=== PATIENT | female | born 1950 | race Caucasian/White ===

== ENCOUNTER 2016-09-09 10:06 | Outpatient (CLI) | payer MEDICARE, BC | END 2016-09-09 10:07 | disposition home or self-care (01) | DX: M17.0 Bilateral primary osteoarthritis of knee (principal) ==

== ENCOUNTER 2016-09-17 10:09 | Outpatient (CLI) | payer MEDICARE, BC | END 2016-09-17 10:10 | disposition home or self-care (01) | DX: Z12.31 Encounter for screening mammogram for malignant neoplasm of breast (principal) ==

== ENCOUNTER 2016-11-25 14:57 | Outpatient (CLI) | payer MEDICARE, BC ==
[2016-11-25 17:44] LABS: BILIRUBIN,URINE NEGATIVE (NEGATIVE); PH,URINE 5.5 PH (5.0-7.5)
[2016-11-25 17:50] LABS: UA w/ MICROSCOPIC CHARGE YES; UR CULTURE IF IND INDICATED; WBC,URINE >25 /HPF (0-5)
== END 2016-11-25 14:58 | disposition home or self-care (01) ==
LOC: LAB.F 14:57
PROVIDERS: ATTEND Internal Medicine
DX: N30.00 Acute cystitis without hematuria (principal)
CPT/HCPCS: 81001; 81003; 87077; 87086

== ENCOUNTER 2017-09-12 10:11 | Outpatient (CLI) | payer MEDICARE, BC ==
[2017-09-12 18:04] LABS: ALBUMIN 4.1 g/dL (3.2-5.5); ALKALINE PHOSPHATASE 73 IU/L (42-121); ALT ALANINE AMINOTRANSFERASE 29 IU/L (10-60); AST ASPARTATE AMINOTRANSFERASE 23 IU/L (10-42); BILIRUBIN,DIRECT 0.1 mg/dL (0.1-0.5); BILIRUBIN,TOTAL 0.4 mg/dL (0.2-1.0); CHOL/HDL RATIO 4.8 (<4.4); CHOLESTEROL 179 mg/dL; CK- CREATINE KINASE 41 IU/L (22-269); HDL CHOLESTEROL 37 mg/dL; LDL CHOLESTEROL,CALCULATED 102 mg/dL; LDL/HDL RATIO 2.8 (<4.4); TOTAL PROTEIN 7.1 g/dL (6.7-8.2); VLDL CHOLESTEROL 40 mg/dL
[2017-09-12 18:13] LABS: THYROID STIMULATING HORMONE 2.84 uIU/mL (0.34-5.60)
[2017-09-12 18:16] LABS: CREATININE,URINE 188.8 mg/dL; MICROALBUM/CREATININE RATIO,UR 3.2 ug/mg (<30.0); MICROALBUMIN,URINE 0.6 mg/dL (0-300.0)
[2017-09-12 18:17] LABS: FERRITIN 57.1 ng/mL (11.0-306.8)
== END 2017-09-12 10:12 | disposition home or self-care (01) ==
LOC: LAB.F 10:11
PROVIDERS: ATTEND Internal Medicine
DX: Z79.899 Other long term (current) drug therapy (principal); E11.9 Type 2 diabetes mellitus without complications; I10 Essential (primary) hypertension; J44.9 Chronic obstructive pulmonary disease, unspecified; G25.81 Restless legs syndrome; E78.5 Hyperlipidemia, unspecified; Z13.6 Encounter for screening for cardiovascular disorders; F41.9 Anxiety disorder, unspecified; M19.90 Unspecified osteoarthritis, unspecified site
CPT/HCPCS: 36415; 80061; 80076; 82043; 82550; 82570; 82607; 82728; 83721; 84443

== ENCOUNTER 2019-02-13 15:28 | Emergency (ER) | payer MEDICARE, BC ==
[2019-02-13 16:21] LABS: BASOPHILS % (AUTO) 0.4 %; EOSINOPHILS # (AUTO) 0.1 10^3/uL (0.0-0.7); HGB - HEMOGLOBIN 14.1 g/dL (12.0-16.0); LYMPHOCYTES # (AUTO) 0.5 10^3/uL (1.5-3.5); LYMPHOCYTES % (AUTO) 5.9 %; MEAN CORPUSCULAR HEMOGLOBIN 29.8 pg (27.0-31.0); MEAN CORPUSCULAR HGB CONC 32.5 g/dL (32.0-36.0); MEAN CORPUSCULAR VOLUME 91.8 fL (81.0-99.0); MEAN PLATELET VOLUME 9.5 fL (7.9-10.8); MONOCYTES # (AUTO) 0.2 10^3/uL (0.0-1.0); MONOCYTES % (AUTO) 2.9 %; NEUTROPHILS # (AUTO) 7.5 10^3/uL (1.5-6.6); NEUTROPHILS % (AUTO) 89.2 %; PLT - PLATELET COUNT 182 10^3/uL (130-450); RED BLOOD COUNT 4.73 10^6/uL (4.20-5.40); RED CELL DISTRIBUTION WIDTH 13.7 % (12.0-15.0); WHITE BLOOD COUNT 8.4 x10^3/uL (4.8-10.8)
[2019-02-13 16:22] LABS: BILIRUBIN,URINE NEGATIVE (NEGATIVE); GLUCOSE, URINE (UA) NEGATIVE (NEGATIVE); KETONES,URINE (UA) NEGATIVE (NEGATIVE); LEUKOCYTE ESTERASE, URINE SMALL (NEGATIVE); NITRITE,URINE NEGATIVE (NEGATIVE); OCCULT BLOOD,URINE NEGATIVE (NEGATIVE); PROTEIN,URINE NEGATIVE (NEGATIVE); UROBILINOGEN,URINE 0.2 (NORMAL) E.U./dL (NORMAL)
[2019-02-13 16:25] LABS: CLARITY,URINE HAZY (CLEAR); HCG UR QUAL NEGATIVE
[2019-02-13 16:34] LABS: RBC,URINE 0-5 /HPF (0-5); SQUAMOUS EPITHELIAL CELL,UR FEW Squamous (<= Few)
[2019-02-13 16:35] LABS: BACTERIA,URINE Moderate /HPF (None Seen)
[2019-02-13 16:39] LABS: ALBUMIN 4.4 g/dL (3.2-5.5); ALBUMIN/GLOBULIN RATIO 1.3 (1.0-2.2); BILIRUBIN,TOTAL 0.7 mg/dL (0.2-1.0); CALCIUM 9.5 mg/dL (8.5-10.3); CREATININE 0.9 mg/dL (0.4-1.0); TOTAL PROTEIN 7.8 g/dL (6.7-8.2)
[2019-02-13] MEDS ORDERED: ONDANSETRON 4 MG/2 ML VIAL IVP STA ×2 (17:39→20:30)
[2019-02-13] MEDS ORDERED: HYDROmorphone 1 MG/ML CARPUJECT IVP STA (17:39)
--- NOTE | 2019-02-13 17:42 | ED Physician Documentation ---
PD HPI ABD PAIN - Stated complaint Stated Complaint: VOMITING/PX LEFT SIDE - Chief complaint Chief Complaint: Abd Pain - History obtained from History obtained from: Patient - History of Present Illness Timing - onset: Other (Gradual onset constant left mid abdominal pain today that is severe associate with nausea and vomiting. Normal BM this morning. No urinary symptoms. She has a history of diverticulitis but this is different.) Review of Systems Ten Systems: 10 systems reviewed and negative Constitutional: reports: Chills. denies: Fever GI: reports: Abdominal Pain, Nausea, Vomiting. 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 - Present Medications Home Medications: Ambulatory Orders Medication Instructions Recorded Confirmed Enalaprilat [Vasotec] 4 tab ORAL BID 02/01/14 02/08/14 RX: Glipizide [Glipizide Xl] 1.5 tab ORAL DAILY 02/01/14 02/08/14 RX: Simvastatin [Zocor] 1 tab ORAL DAILY 02/01/14 02/08/14 RX: metFORMIN [Glucophage] 1 tab ORAL BID 02/01/14 02/08/14 Sertraline HCl [Zoloft] 1 tab ORAL DAILY 02/01/14 02/08/14 Nitrofurantoin Monohyd/M-Cryst 100 mg PO BID #14 capsule 02/13/19 [Macrobid 100 mg Capsule] Oxycodone HCl/Acetaminophen 1 - 2 each PO Q6H PRN #14 tablet 02/13/19 [Percocet 5-325 mg Tablet] Tamsulosin [Flomax] 0.4 mg PO DAILY #14 capsule 02/13/19 - Allergies Allergies/Adverse Reactions: Allergies Allergy/AdvReac Type Severity Reaction Status Date / Time Penicillins Allergy Hives Verified 02/01/14 12:29 bees Allergy Edema Uncoded 02/08/14 14:55 transpore tape Allergy Itching Uncoded 02/08/14 14:55 - Social History Does the pt smoke?: No Smoking Status: Never smoker Does the pt drink ETOH?: Yes Does the pt have substance abuse?: No - Immunizations Immunizations are current?: Yes PD ED PE NORMAL - Vitals Vital signs reviewed: Yes - General General: Alert and oriented X 3, No acute distress - HEENT HEENT: PERRL, EOMI - Neck Neck: Supple, no meningeal sign, No bony TTP - Cardiac Cardiac: Other (slightly tachycardic) - Respiratory Respiratory: No respiratory distress, Clear bilaterally - Abdomen Abdomen: Normal bowel sounds, Soft, Non tender - Back Back: No CVA TTP, No spinal TTP - Derm Derm: Normal color, Warm and dry - Extremities Extremities: No edema, No calf tenderness / cord - Neuro Neuro: Alert and oriented X 3, Normal speech Results - Vitals Vitals: Vital Signs - 24 hr 02/13/19 02/13/19 02/13/19 15:49 17:55 19:00 Temperature 37.2 C Heart Rate 120 H 133 H 133 H Respiratory 18 20 21 Rate Blood Pressure 173/93 H 162/75 H 147/77 H O2 Saturation 96 92 93 02/13/19 02/13/19 02/13/19 19:50 20:05 21:02 Temperature 38.3 C H 38.6 C H Heart Rate 131 H 138 H 118 H Respiratory 19 18 20 Rate Blood Pressure 157/86 H 170/100 H 153/75 H O2 Saturation 93 97 97 Oxygen O2 Source Nasal cannula - Labs Labs: Laboratory Tests 02/13/19 02/13/19 02/13/19 16:00 16:15 16:15 WBC 8.4 RBC 4.73 Hgb 14.1 Hct 43.4 MCV 91.8 MCH 29.8 MCHC 32.5 RDW 13.7 Plt Count 182 MPV 9.5 Neut # (Auto) 7.5 H Lymph # (Auto) 0.5 L [place] # (Auto) 0.2 Eos # (Auto) 0.1 Baso # (Auto) 0.0 Absolute Nucleated RBC 0.00 Nucleated RBC % 0.0 Sodium 140 Potassium 4.2 Chloride 99 L Carbon Dioxide 28 Anion Gap 13.0 BUN 26 H Creatinine 0.9 Estimated GFR (MDRD) 62 L Glucose 137 H Calcium 9.5 Total Bilirubin 0.7 AST 26 ALT 24 Alkaline Phosphatase 88 Total Protein 7.8 Albumin 4.4 Globulin 3.4 Albumin/Globulin Ratio 1.3 Lipase 23 Urine Color YELLOW Urine Clarity HAZY Urine pH 5.0 Ur Specific [place] 1.020 Urine Protein NEGATIVE Urine Glucose (UA) NEGATIVE Urine Ketones NEGATIVE Urine Occult Blood NEGATIVE Urine Nitrite NEGATIVE Urine Bilirubin NEGATIVE Urine Urobilinogen 0.2 (NORMAL) Ur Leukocyte Esterase SMALL H Urine RBC 0-5 Urine WBC 6-10 H Ur Squamous Epith Cells FEW Squamous Urine Bacteria Moderate H Ur Microscopic Review INDICATED Urine Culture Comments INDICATED Urine HCG, Qual NEGATIVE - Rads (name of study) CT KUB Radiology: EMP read contemporaneously (Obstructing 3 mm stone in the proximal left ureter causing mild left hydroureteronephrosis.) PD MEDICAL DECISION MAKING - ED course ED course: 68-year-old woman presents with left-sided abdominal pain, found to have small kidney stone. Some evidence of infection on urinalysis but pretty mild. Given that the case was discussed by phone with Dr. Newton, on-call urology at [facility] who recommended Macrobid and Flomax and follow-up as needed. Pain was easy to control with a single dose of dilaudid. However prior to discharge she had a fever of 38 3 and she became a little more tachycardic as such the urologist was re-paged to discuss. Spoke with Dr Newton again and she recommended IV rocephin and transfer to hospitalist service at [facility] for intervention She was accepted there by Dr. Mccloud to the hospitalist service, cobras were completed. She is stable for transport to a higher level of care for urologic consultation. Departure - Departure Disposition: 02 Transfer Acute Care Hosp Clinical Impression: Renal colic on left side, Pyelonephritis Condition: Serious Record reviewed to determine appropriate education?: Yes Instructions: ED Stone Renal W Colic Follow-Up: Sylvie Pritchett MD [Physician No Access] - Within 1 week Prescriptions: Nitrofurantoin Monohyd/M-Cryst [Macrobid 100 mg Capsule] 100 mg PO BID #14 capsule Oxycodone HCl/Acetaminophen [Percocet 5-325 mg Tablet] 1 - 2 each PO Q6H PRN #14 tablet PRN Reason: pain Tamsulosin [Flomax] 0.4 mg PO DAILY #14 capsule Comments: Return for new worsening symptoms especially fever. Or if pain is uncontrolled. Follow-up with urologist, call tomorrow for an appointment. We will culture your urine, if your urine culture is positive you will need alterations in treatment. Discharge Date/Time: 02/13/19 21:35
[2019-02-13] MEDS ORDERED: IOVERSOL 320 100 ML VIAL IVP ONE ×2 (18:02→18:20)
[2019-02-13] MEDS ORDERED: SODIUM CHLORIDE 0.9% 1,000 ML IV ONE ×2 (19:02→19:57)
--- NOTE | 2019-02-13 19:02 | CT Report ---
Reason: IV only,L mid abd pain Procedure Date: 02/13/2019 Accession Number: [id number] / [id number] Procedure: CT - Abdomen/Pelvis W CPT Code: FULL RESULT: EXAM: CT ABDOMEN AND PELVIS EXAM DATE: 02/13/2019 06:20 PM. CLINICAL HISTORY: L mid abd pain. COMPARISONS: None. TECHNIQUE: Routine helical CT imaging was performed through the abdomen and pelvis. IV contrast: OPTI 320 90ML. Enteric contrast: No. Reconstructions: Coronal and sagittal. In accordance with CT protocol optimization, one or more of the following dose reduction techniques were utilized for this exam: automated exposure control, adjustment of mA and/or KV based on patient size, or use of iterative reconstructive technique. FINDINGS: Lung Bases: Mild bibasilar atelectasis and/or scarring, left greater than right. Normal heart size. No pericardial effusion. Mitral annular calcification. Liver: 32 mm cyst in hepatic segment 6. Additional subcentimeter hypoattenuating focus in hepatic segment 5, too small to definitively characterize, statistically a cyst. Gallbladder/Bile Ducts: Prior cholecystectomy. No biliary ductal dilatation. Spleen: Normal. Pancreas: Normal. Adrenal Glands: Normal. Kidneys: Trace right perinephric fat stranding, nonspecific. There is an obstructing 3 mm stone in the proximal left ureter causing mild left hydroureteronephrosis. There is marked surrounding perinephric fat stranding and small amount of perinephric free fluid. Peritoneal Cavity/Bowel: Small and large bowel normal in caliber without evidence of inflammation or obstruction. Moderate to severe colonic diverticulosis. No pneumoperitoneum. No loculated fluid collections. Pelvic Organs: Normal urinary bladder. Hysterectomy. Pelvic phleboliths. Vasculature: Mild aortic atherosclerosis without aneurysm. Bones: Mild levocurvature of the lumbar spine. Severe degenerative disk disease and bilateral facet osteoarthritis L4-L5, L5-S1. Right osteitis condensans ilii. Other: Anterior abdominal wall diastases with herniation of liver, mesenteric fat, and colon below the sternum. Minuscule fat-containing umbilical hernia. IMPRESSION: Obstructing 3 mm stone in the proximal left ureter causing mild left hydroureteronephrosis. RADIA
[2019-02-13] MEDS ORDERED: oxyCODONE/ACET 5/325 Prepack 4 PO STA (19:19)
[2019-02-13] MEDS ORDERED: TAMSULOSIN 0.4 MG CAPSULE PO STA (19:19)
[2019-02-13] MEDS ORDERED: NITROFURANTOIN MACRO 100 MG CAPSULE PO STA (19:19)
[2019-02-13] MEDS ORDERED: KETOROLAC 30 MG/ML VIAL IVP STA (19:53)
[2019-02-13] MEDS ORDERED: cefTRIAXone 1 GM in SODIUM CHLORIDE 0.9% MINIBAG 100 ML IV STA (20:09)
[2019-02-13 21:03] VITALS: BP 153/75
== END 2019-02-13 21:35 | disposition short-term general hospital (02) ==
LOC: ED 15:28
DX: N13.6 Pyonephrosis (principal); I10 Essential (primary) hypertension; E11.9 Type 2 diabetes mellitus without complications; Z79.84 Long term (current) use of oral hypoglycemic drugs; Z87.19 Personal history of other diseases of the digestive system
CPT/HCPCS: 36415; 74177; 80053; 81001; 81025; 83690; 85025; 87077; 87086; 87181; 96361; 96365; 96375; 99285; A9270; J1170; Q9967; 81003

== ENCOUNTER 2019-02-13 21:38 | Outpatient (CLI) | payer MEDICARE, BC | END 2019-02-13 21:39 | disposition short-term general hospital (02) | LOC: EMS 21:38 | PROVIDERS: ATTEND Surgery | DX: N23 Unspecified renal colic (principal) | CPT/HCPCS: A0425; A0426 ==

== ENCOUNTER 2019-04-21 08:00 | Outpatient (CLI) | payer MEDICARE, BC | END 2019-04-21 23:59 | disposition home or self-care (01) | LOC: LAB.R 08:00 | PROVIDERS: ATTEND Internal Medicine | DX: R19.7 Diarrhea, unspecified (principal) | CPT/HCPCS: 81599; 83630; 87045; 87046; 87177; 87209; 87329; 87493 ==

== ENCOUNTER 2020-04-22 12:25 | Inpatient (IN) | payer MEDICARE, BC ==
[2020-04-22] MEDS ORDERED: levoFLOXacin 750 MG/150 ML 750 MG/150 ML BAG IV STA (13:07)
--- NOTE | 2020-04-22 13:09 | ED Physician Documentation ---
PD HPI DYSPNEA - Stated complaint Stated Complaint: SOA - Chief complaint Chief Complaint: Resp - History obtained from History obtained from: Patient - Additional information Additional information: 69-year-old history will of mild intermittent asthma presents with a weeks worth of cough productive of clear sputum, progressive exertional dyspnea, fatigue. No associated fevers or chills. No body aches. No sick contacts. Went to an urgent care where she was found to be profoundly hypoxemic and referred here for further evaluation and treatment. Has a history of penicillin with hives as the symptom of the allergy. Review of Systems Ten Systems: 10 systems reviewed and negative Constitutional: reports: Fatigue. 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 - Present Medications Home Medications: Ambulatory Orders Medication Instructions Recorded Confirmed Amlodipine Besylate [Norvasc] 10 mg PO DAILY 04/22/20 04/22/20 Enalapril Maleate [Vasotec] 20 mg PO DAILY 04/22/20 04/22/20 Metformin HCl [Glucophage] 1,000 mg PO BID 04/22/20 04/22/20 Sertraline HCl 50 mg PO DAILY 04/22/20 04/22/20 Simvastatin [Zocor] 20 mg PO QPM 04/22/20 04/22/20 carvediloL [Coreg] 12.5 mg PO BID 04/22/20 04/22/20 glipiZIDE [Glucotrol] 5 mg PO BID 04/22/20 04/22/20 hydroCHLOROthiazide 25 mg PO DAILY 04/22/20 04/22/20 [Hydrochlorothiazide] - Allergies Allergies/Adverse Reactions: Allergies Allergy/AdvReac Type Severity Reaction Status Date / Time Penicillins Allergy Hives Verified 02/01/14 12:29 bees Allergy Edema Uncoded 02/08/14 14:55 transpore tape Allergy Itching Uncoded 02/08/14 14:55 - Social History Does the pt smoke?: No Smoking Status: Never smoker Does the pt drink ETOH?: Yes Does the pt have substance abuse?: No - Immunizations Immunizations are current?: Yes - POLST Patient has POLST: No PD ED PE NORMAL - Vitals Vital signs reviewed: Yes - General General: Alert and oriented X 3, No acute distress - HEENT HEENT: PERRL, EOMI - Neck Neck: Supple, no meningeal sign, No bony TTP - Cardiac Cardiac: RRR, No murmur - Respiratory Respiratory: No respiratory distress, Other (Severely diminished at the right base consistent with a lobar pneumonia, slightly diminished throughout) - Abdomen Abdomen: Soft, Non tender - Back Back: No CVA TTP, No spinal TTP - Derm Derm: Normal color, Warm and dry - Extremities Extremities: No edema, No calf tenderness / cord - Neuro Neuro: Alert and oriented X 3, Normal speech Results - Vitals Vitals: Vital Signs - 24 hr 04/22/20 04/22/20 04/22/20 12:33 12:42 12:43 Temperature 36.4 C L Heart Rate 60 Respiratory 30 H Rate Blood Pressure 164/83 H O2 Saturation 61 L 97 96 04/22/20 04/22/20 13:00 13:30 Temperature Heart Rate 76 73 Respiratory 19 19 Rate Blood Pressure 152/76 H 149/74 H O2 Saturation 96 97 Oxygen O2 Source Nasal cannula Oxygen Flow Rate 4 - EKG (time done) 126 Rate: Rate (enter#) (67) Rhythm: NSR [place]: Normal Intervals: Normal CO QRS: Normal Ischemia: Non specific changes Computer interpretation: Agree with computer - Labs Labs: Laboratory Tests 04/22/20 04/22/20 04/22/20 13:16 13:16 13:16 WBC 6.5 RBC 4.93 Hgb 13.6 Hct 46.6 MCV 94.5 MCH 27.6 MCHC 29.2 L RDW 14.3 Plt Count 186 MPV 9.9 Neut # (Auto) 5.2 Lymph # (Auto) 0.7 L [place] # (Auto) 0.5 Eos # (Auto) 0.1 Baso # (Auto) 0.0 Absolute Nucleated RBC 0.02 Nucleated RBC % 0.3 Sodium 140 Potassium 4.2 Chloride 91 L Carbon Dioxide 36 H Anion Gap 13.0 BUN 27 H Creatinine 0.8 Estimated GFR (MDRD) 71 L Glucose 130 H Lactic Acid 0.9 Calcium 9.5 Troponin I High Sens B-Natriuretic Peptide Nasal Adenovirus (PCR) Nasal B. parapertussis DNA (PCR) Nasal Coronavir 229E PCR Nasal Coronavir HKU1 PCR Nasal Coronavir NL63 PCR Nasal Coronavir OC43 PCR Nasal Enterovir/Rhinovir PCR Nasal Influenza B PCR Nasal Influenza A PCR Nasal Parainfluen 1 PCR Nasal Parainfluen 2 PCR Nasal Parainfluen 3 PCR Nasal Parainfluen 4 PCR Nasal RSV (PCR) Nasal B.pertussis DNA PCR Nasal C.pneumoniae (PCR) Yash Human Metapneumo PCR Nasal M.pneumoniae (PCR) Nasal SARS-CoV-2 (PCR) 04/22/20 04/22/20 04/22/20 13:28 13:30 13:30 WBC RBC Hgb Hct MCV MCH MCHC RDW Plt Count MPV Neut # (Auto) Lymph # (Auto) [place] # (Auto) Eos # (Auto) Baso # (Auto) Absolute Nucleated RBC Nucleated RBC % Sodium Potassium Chloride Carbon Dioxide Anion Gap BUN Creatinine Estimated GFR (MDRD) Glucose Lactic Acid Calcium Troponin I High Sens 8.4 B-Natriuretic Peptide 117 H Nasal Adenovirus (PCR) NOT DETECTED Nasal B. parapertussis DNA (PCR) NOT DETECTED Nasal Coronavir 229E PCR NOT DETECTED Nasal Coronavir HKU1 PCR NOT DETECTED Nasal Coronavir NL63 PCR NOT DETECTED Nasal Coronavir OC43 PCR NOT DETECTED Nasal Enterovir/Rhinovir PCR NOT DETECTED Nasal Influenza B PCR NOT DETECTED Nasal Influenza A PCR NOT DETECTED Nasal Parainfluen 1 PCR NOT DETECTED Nasal Parainfluen 2 PCR NOT DETECTED Nasal Parainfluen 3 PCR NOT DETECTED Nasal Parainfluen 4 PCR NOT DETECTED Nasal RSV (PCR) NOT DETECTED Nasal B.pertussis DNA PCR NOT DETECTED Nasal C.pneumoniae (PCR) NOT DETECTED Yash Human Metapneumo PCR NOT DETECTED Nasal M.pneumoniae (PCR) NOT DETECTED Nasal SARS-CoV-2 (PCR) NOT DETECTED - Rads (name of study) 1v chest Radiology: EMP read contemporaneously (My interpretation of the single view x- ray is right middle lobe pneumonia, the radiologist felt it was more consistent with cardiomegaly and vascular congestion.) PD MEDICAL DECISION MAKING - ED course ED course: 69-year-old woman presents with clinical pneumonia, will check chest x-ray, standard blood work, will start levofloxacin noting severe penicillin allergy. Coronavirus will be checked but her symptomatology is not quite consistent given the lack of fever or body aches. Of the x-rays and clinical status is consistent with a right middle lobe pneumonia. Radiologist felt it was more consistent with cardiomegaly and pulmonary vascular congestion. We will add on a BNP and troponin. Spoke with Dr. Tejada for admission at 3 PM. Departure - Departure Disposition: 66 [facility] DC/Xfer Clinical Impression: Hypoxemia Pneumonia Qualifiers: Pneumonia type: due to unspecified organism Laterality: right Lung location: lower lobe of lung Qualified Code(s): J18.9 - Pneumonia, unspecified organism Condition: Serious Discharge Date/Time: 04/22/20 16:43
[2020-04-22 13:32] LABS: BASOPHILS % (AUTO) 0.5 %; EOSINOPHILS # (AUTO) 0.1 10^3/uL (0.0-0.7); EOSINOPHILS % (AUTO) 1.7 %; HGB - HEMOGLOBIN 13.6 g/dL (12.0-16.0); LYMPHOCYTES # (AUTO) 0.7 10^3/uL (1.5-3.5); LYMPHOCYTES % (AUTO) 10.4 %; MEAN CORPUSCULAR HEMOGLOBIN 27.6 pg (27.0-31.0); MEAN CORPUSCULAR HGB CONC 29.2 g/dL (32.0-36.0); MEAN CORPUSCULAR VOLUME 94.5 fL (81.0-99.0); MEAN PLATELET VOLUME 9.9 fL (7.9-10.8); MONOCYTES # (AUTO) 0.5 10^3/uL (0.0-1.0); NEUTROPHILS # (AUTO) 5.2 10^3/uL (1.5-6.6); NEUTROPHILS % (AUTO) 79.8 %; PLT - PLATELET COUNT 186 10^3/uL (130-450); RED BLOOD COUNT 4.93 10^6/uL (4.20-5.40); RED CELL DISTRIBUTION WIDTH 14.3 % (12.0-15.0); WHITE BLOOD COUNT 6.5 x10^3/uL (4.8-10.8)
[2020-04-22 13:37] LABS: CALCIUM 9.5 mg/dL (8.5-10.3); CREATININE 0.8 mg/dL (0.4-1.0)
[2020-04-22] MEDS ORDERED: SODIUM CHLORIDE 0.9% 1,000 ML IV STA (14:36)
[2020-04-22] MEDS ORDERED: DEXAMETHASONE 10 MG/ML VIAL IVP STA (14:36)
--- NOTE | 2020-04-22 14:39 | XRAY Report ---
PROCEDURE: Chest 1 View X-Ray INDICATIONS: cough TECHNIQUE: One view of the chest was acquired. COMPARISON: None FINDINGS: Surgical changes and devices: None. Lungs and pleura: No large pleural effusions or pneumothorax. Lung volumes are low. Generalized inte rstitial prominence is seen. Mediastinum: Mediastinal contours appear normal. Calcification is seen of the aortic arch. Heart si ze is mildly enlarged. Bones and chest wall: No suspicious bony lesions. Age-appropriate degenerative changes are seen. Mi ld dextroconvex scoliotic curvature is seen. Overlying soft tissues appear unremarkable. IMPRESSION: Mild cardiomegaly and interstitial prominence. Please correlate with patient examination, history, an d laboratory values for underlying congestive heart failure. Reviewed by: Sudarshan Prabhakar MD on 04/22/2020 1:38 PM STEPHAN Approved by: Sudarshan Prabhakar MD on 04/22/2020 1:38 PM STEPHAN Station ID: [id number]
[2020-04-22 14:50] LABS: C. PNEUMONIAE- RESP PCR PANEL NOT DETECTED
[2020-04-22] MEDS ORDERED: guaiFENesin/CODEINE 5 ML UDC PO STA (15:04)
[2020-04-22] MEDS ORDERED: BENZONATATE 100 MG CAPSULE PO STA (15:04)
[2020-04-22] MEDS ORDERED: ONDANSETRON 4 MG/2 ML VIAL IVP PRN (15:33)
[2020-04-22] MEDS ORDERED: IPRATROPIUM/ALBUTEROL 3 ML NEB INH PRN (15:36)
[2020-04-22] MEDS: SODIUM CHLORIDE FLUSH 0.9% 10 ML SYRINGE IVP SCH (17:17)
--- NOTE | 2020-04-22 19:32 | HISTORY & PHYSICAL EXAMINATION ---
Chief Complaint - Chief Complaint Chief Complaint: Dyspnea History of Present Illness - Admitted From Admitted From:: [facility] ED - History Obtained From Records Reviewed: yes History obtained from: Patient's sister - History of Present Illness HPI Comment/Other: Patient is a 69-year-old female with medical history significant for hyperlipid emia, diabetes mellitus, hypertension, depression, restless leg syndrome and chronic bronchitis/asthma who presented to the ED with dyspnea. She has been nasal congestion, increased/worsening fatigue, trouble sleeping and coughing for the past 1 week. She went to the [facility] where it was reported that her oxygen saturation was in the 60s. She was given a breathing treatment and advised to go to the emergency department for further evaluation and treatment. Chest x-ray was concerning for right lower lung pneumonia vs pulmonary edema. As a result she was presented for admission. This history was mainly provided by the patient's Sister Claudine because the patient is not able to provide a reliable history at the moment. It took significant prompting to wake her up from sleep and she currently mainly anxious that she does not know to any questions asked. Her son reports that she did not complain of chest pain but she was short of breath and was wheezing. The patient informed the ED physicians that she had been coughing up clear sputum for the past 1 week. She did not have a fever or chills. Yesterday she was nauseous but did not vomit. She has +1 lower extremity pitting edema. At baseline the patient is independent of activities of living. She lives with her sister and her mother and she is the main person in charge with keeping the house and doing groceries. 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 He also had diabetes mellitus, history of CVA and cardiac arrhythmias. Mother is alive and has history of hypertension Living arrangement: At home Living Situation: With family Social History Notes: She does not use tobacco products, recreational substances or alcohol. - POLST Patient has POLST: No Meds/Allgy - Home Medications Home Medications: Ambulatory Orders Medication Instructions Recorded Confirmed Amlodipine Besylate [Norvasc] 10 mg PO DAILY 04/22/20 04/22/20 Enalapril Maleate [Vasotec] 20 mg PO DAILY 04/22/20 04/22/20 Metformin HCl [Glucophage] 1,000 mg PO BID 04/22/20 04/22/20 Sertraline HCl 50 mg PO DAILY 04/22/20 04/22/20 Simvastatin [Zocor] 20 mg PO QPM 04/22/20 04/22/20 carvediloL [Coreg] 12.5 mg PO BID 04/22/20 04/22/20 glipiZIDE [Glucotrol] 5 mg PO BID 04/22/20 04/22/20 hydroCHLOROthiazide 25 mg PO DAILY 04/22/20 04/22/20 [Hydrochlorothiazide] - Allergies Allergies/Adverse Reactions: Allergies Allergy/AdvReac Type Severity Reaction Status Date / Time Penicillins Allergy Hives Verified 02/01/14 12:29 bees Allergy Edema Uncoded 02/08/14 14:55 transpore tape Allergy Itching Uncoded 02/08/14 14:55 Review of Systems - Constitutional Constitutional: reports: Weakness. denies: Fatigue, Fever, Chills - Eyes Eyes: denies: Pain - Ears, Nose & Throat Ears, Nose & Throat: reports: Nasal congestion - Cardiovascular Cariovascular: reports: Edema (+1) - Respiratory Respiratory: reports: Cough, Sputum production, Wheezing, SOB at rest - Gastrointestinal Gastrointestinal: reports: Nausea, Reflux/heartburn. denies: Abdominal pain, Abdominal distention, Vomiting, Coffee grounds emesis - Genitourinary Genitourinary: denies: Dysuria, Frequency, Urgency, Hematuria - Musculoskeletal Musculoskeletal: denies: Muscle pain, Back pain, Muscle aches - Integumentary Integumentary: denies: Rash, Pruritis - Neurological Neurological: reports: General weakness. denies: Focal weakness, Headache, Dizziness - Psychiatric Psychiatric: reports: Depression. denies: Anxiety - Endocrine Endocrine: denies: Polyuria, Polydypsia - Hematologic/Lymphatic Hematologic/Lymphatic: denies: Anemia, Bruising Prior Level of Functionality: Patient is normally independent of activities of daily living. He is the primary person who keeps the house and does grocery for her family. She lives with her mother and her sister. 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 Exam - Vital Signs Vital Signs: Vital Signs x48h Temp Pulse Pulse Resp BP BP Pulse Ox 04/22/20 17:22 95 04/22/20 16:50 36 C L 68 19 145/71 H 99 04/22/20 13:30 73 19 149/74 H 97 04/22/20 13:00 76 19 152/76 H 96 04/22/20 12:43 96 04/22/20 12:42 97 04/22/20 12:33 36.4 C L 60 30 H 164/83 H 61 L - Physical Exam General Appearance: positive: No acute distress, Other (Somnolent but arousable) Eyes Bilateral: positive: PERRL, EOMI ENT: positive: No signs of dehydration Neck: positive: No JVD, Trachea midline Respiratory: positive: Wheezes, Other (Decreased breath sound) Cardiovascular: positive: Regular rate & rhythm, No murmur Back: positive: Nml inspection Skin: positive: Color nml, No rash, Warm, Dry Extremities: positive: Non-tender, Full ROM, Nml appearance, Pedal edema (+1 pitting edema) Neurologic/Psychiatric: positive: Motor nml, Mood/affect nml, Disoriented to place, Disoriented to time Conclusion/Plan - Problem List (1) Acute respiratory failure with hypoxia Conclusion/Plan: This could be secondary to bronchitis versus pneumonia Patient is on 2 L of supplemental oxygen via nasal cannula with Oxygen Saturation in the 90s Patient was placed on Solu-Medrol 40 mg IV 3 times daily after receiving a one time dose of dexamethasone 10mg IV. DuoNeb as needed. [id number] mg IV given x1. We will continue Levaquin 500 mg p.o. daily. Blood culture pending. Biofire panel was negative. 2D echo ordered (2) HTN (hypertension) Conclusion/Plan: We will continue patient's amlodipine 10 mg p.o. daily and hydrochlorothiazide 25 mg p.o. daily (3) Diabetes mellitus Conclusion/Plan: We will hold patient's Metformin and glipizide. We will order sliding scale insulin and Accu-Cheks. Qualifiers: Diabetes mellitus type: type 2 (4) Hyperlipidemia Conclusion/Plan: Atorvastatin 10 mg every afternoon ordered (5) Restless leg syndrome Conclusion/Plan: On pramipexole 0.375 mg nightly (6) Depression Conclusion/Plan: Zoloft (7) GERD (gastroesophageal reflux disease) Conclusion/Plan: Famotidine 20mg po bid ordered - Lab Results Fish Bones: 04/22/20 13:16 04/22/20 13:16 Core Measures - Anticipated LOS I expect patient to be DC'd or transferred within 96 hours.: Yes - DVT/VTE - Prophylaxis VTE/DVT Device ordered at admit?: Yes VTE/DVT Prophylaxis med ordered at admit?: Yes
[2020-04-22] MEDS: methylPREDNISolone SUCCINATE 40 MG/ML VIAL IVP SCH (21:45)
[2020-04-22] MEDS: FAMOTIDINE 20 MG TABLET PO SCH (21:45)
[2020-04-22] MEDS: INSULIN ASPART 300 UNIT/3 ML PEN SUBQ SCH (21:45)
[2020-04-22] MEDS: guaiFENesin 600 MG TABLET PO SCH (21:45)
[2020-04-22] MEDS: ATORVASTATIN 10 MG TABLET PO SCH (21:45)
[2020-04-22] MEDS: PRAMIPEXOLE 0.25 MG TABLET PO SCH (21:48)
[2020-04-23] MEDS: SODIUM CHLORIDE FLUSH 0.9% 10 ML SYRINGE IVP SCH ×3 (01:35→15:54)
[2020-04-23 05:57] LABS: BASOPHILS % (AUTO) 0.3 %; HGB - HEMOGLOBIN 13.1 g/dL (12.0-16.0); LYMPHOCYTES # (AUTO) 0.3 10^3/uL (1.5-3.5); LYMPHOCYTES % (AUTO) 5.1 %; MEAN CORPUSCULAR HEMOGLOBIN 28.1 pg (27.0-31.0); MEAN CORPUSCULAR HGB CONC 29.2 g/dL (32.0-36.0); MEAN CORPUSCULAR VOLUME 96.4 fL (81.0-99.0); MEAN PLATELET VOLUME 9.5 fL (7.9-10.8); MONOCYTES # (AUTO) 0.3 10^3/uL (0.0-1.0); MONOCYTES % (AUTO) 4.8 %; NEUTROPHILS # (AUTO) 5.1 10^3/uL (1.5-6.6); NEUTROPHILS % (AUTO) 87.2 %; PLT - PLATELET COUNT 175 10^3/uL (130-450); RED BLOOD COUNT 4.66 10^6/uL (4.20-5.40); RED CELL DISTRIBUTION WIDTH 14.2 % (12.0-15.0); WHITE BLOOD COUNT 5.8 x10^3/uL (4.8-10.8)
[2020-04-23 06:06] LABS: CALCIUM 8.7 mg/dL (8.5-10.3); CREATININE 0.9 mg/dL (0.4-1.0)
[2020-04-23] MEDS: methylPREDNISolone SUCCINATE 40 MG/ML VIAL IVP SCH ×3 (07:05→21:37)
[2020-04-23] MEDS: SODIUM CHLORIDE FLUSH 0.9% 10 ML SYRINGE IVP PRN ×3 (07:05→21:37)
[2020-04-23] MEDS: hydroCHLOROthiazide 25 MG TABLET PO SCH (08:39)
[2020-04-23] MEDS: SERTRALINE 50 MG TABLET PO SCH (08:40)
[2020-04-23] MEDS: FAMOTIDINE 20 MG TABLET PO SCH ×2 (08:40→20:21)
[2020-04-23] MEDS: guaiFENesin 600 MG TABLET PO SCH ×2 (08:40→20:20)
[2020-04-23] MEDS: INSULIN ASPART 300 UNIT/3 ML PEN SUBQ SCH ×4 (08:43→21:36)
[2020-04-23] MEDS: ENOXAPARIN 40 MG/0.4 ML SYRINGE SUBQ SCH (08:43)
--- NOTE | 2020-04-23 08:49 | PHARMACY PROGRESS NOTE ---
- Best Possible Medication History Admit Date and Time: 04/22/20 1530 Processed by: Pharmacy Medication History completed: Yes Patient Interview: Completed Secondary Source(s): Pharmacy records, Insurance records As the person ultimately responsible for medication therapy, providers are able to order a medication from an existing home medication list in [facility] via the "Reconcile Routine" prior to Confirmation of that medication by high school learning support teacher. Such practice is discouraged except when the physician, in their clinical judgment, deems that a medical need exists for a medication without regard to previous use.
[2020-04-23] MEDS ORDERED: amLODIPine 5 MG TABLET PO SCH (09:00)
[2020-04-23] MEDS ORDERED: levoFLOXacin 250 MG TABLET PO SCH (09:00)
[2020-04-23] MEDS ORDERED: levoFLOXacin 250 MG TABLET PO ONE (10:00)
[2020-04-23] MEDS: IPRATROPIUM/ALBUTEROL 3 ML NEB INH PRN (13:18)
--- NOTE | 2020-04-23 15:35 | PROVIDER PROGRESS NOTE ---
Assessment/Plan - Problem List (1) Acute respiratory failure with hypoxia Assessment/Plan: She still needs supplemental O2 to maintain saturations over 90%. There is much improvement in cough and wheezing today since being started on nebs, steroids and antibiotics. Awaiting the echo to determine if there is systolic heart failure. Will plan to perform oximetry test before discharge for possible home O2 order. (2) CAP (community acquired pneumonia) Assessment/Plan: The emergency room doctor's impression was of a pulmonary infiltrate. She is on empiric iv antibiotics. She is on Mucinex. Blood cultures are negative to date, she was unable to produce a sputum sample. (3) CHF (congestive heart failure) Assessment/Plan: Her BNP is minimally elevated at 117. Her troponins were normal, ruling her out for an acute NC. She was continued on her home dose of HCTZ as her only diuretic. Awaiting the echo to determine if there is systolic or diastolic or combined heart failure to further adjust treatment. Continue supplemental O2. Continue telemetry (4) Asthma exacerbation Assessment/Plan: She is improved significantly with steroids, Mucinex and nebs and antibx. She was never able to make a sputum sample for culture. (5) Restless leg syndrome Assessment/Plan: Her Mirapex was not ordered to be used here, will resume her Mirapex which is every night. (6) Diabetes mellitus Qualifiers: Diabetes mellitus type: type 2 Assessment/Plan: Will check her A1c, continue carb controlled diet and insulin coverage while here (7) Morbid obesity with body mass index of 40.0-49.9 Assessment/Plan: As per history. Will order dietary consult tomorrow (today is Friday and dietary is not here). (8) Depression Assessment/Plan: Her depression med was ordered to use here (9) GERD (gastroesophageal reflux disease) Assessment/Plan: Her home meds were ordered to use here (10) Hyperlipidemia Assessment/Plan: Her home med was ordered to use here (11) HTN (hypertension) Assessment/Plan: Blood pressure is controlled. Her home med was ordered to use here. - Current Meds Current Meds: Current Medications Generic Name Dose Route Start Last Admin Trade Name Freq PRN Reason Stop Dose Admin Albuterol/Ipratropium 3 ml 04/22/20 15:36 04/23/20 13:18 Duoneb INH 3 ml Q4HR PRN Administration Wheezing Atorvastatin Calcium 10 mg 04/22/20 21:00 04/22/20 21:45 Lipitor PO 10 mg QPM RONNY Administration Enoxaparin Sodium 40 mg 04/23/20 09:00 04/23/20 08:43 Lovenox SUBQ 40 mg DAILY RONNY Administration Famotidine 20 mg 04/22/20 21:00 04/23/20 08:40 Pepcid PO 20 mg BID RONNY Administration Guaifenesin 600 mg 04/22/20 21:00 04/23/20 08:40 Mucinex PO 600 mg BID RONNY Administration Hydrochlorothiazide 25 mg 04/23/20 09:00 04/23/20 08:39 Hydrodiuril PO 25 mg DAILY RONNY Administration Insulin Aspart 1 - 5 unit 04/22/20 21:00 04/23/20 11:23 Novolog SUBQ 2 unit 0800,1200,1700,2100 RONNY Administration Protocol Methylprednisolone 40 mg 04/22/20 22:00 04/23/20 14:02 Solu-Medrol (40mg Vial) IVP 40 mg TID RONNY Administration Pramipexole Dihydrochloride 0.375 mg 04/22/20 21:00 04/22/20 21:48 Mirapex PO 0.375 mg QPM RONNY Administration Sertraline HCl 50 mg 04/23/20 09:00 04/23/20 08:40 Zoloft PO 50 mg DAILY RONNY Administration Sodium Chloride 10 ml 04/22/20 15:33 04/23/20 14:02 Normal Saline Flush 0.9% IVP 10 ml PRN PRN Administration NEEDED PER PROVIDER ORDERS Sodium Chloride 10 ml 04/22/20 17:00 04/23/20 08:45 Normal Saline Flush 0.9% IVP 10 ml 0100,0900,1700 RONNY Administration - Lab Result Fish Bone Diagrams: 04/23/20 05:45 04/23/20 05:45 - Additional Planning My Orders: My Active Orders 04/22/20 15:34 Daily Weight [RC] 0600 04/22/20 15:35 Initiate Line Care Protocol [RC] QSHIFT 04/22/20 15:36 Ipratropium/Albuterol [Duoneb] 3 ml INH Q4HR PRN 04/22/20 Dinner Carb-controlled Diet [DIET] 04/22/20 17:00 Sodium Chloride Flush 0.9% [Normal Saline Flush 0.9%] 10 ml IVP 0100,0900,1700 04/22/20 21:00 Atorvastatin [Lipitor] 10 mg PO QPM Famotidine [Pepcid] 20 mg PO BID guaiFENesin [Mucinex] 600 mg PO BID 04/22/20 22:00 methylPREDNISolone SUCCINATE [SOLU-Medrol (40MG VIAL)] 40 mg IVP TID 04/23/20 05:00 LIVER PANEL [CHEM] Routine 04/23/20 09:00 Enoxaparin [Lovenox] 40 mg SUBQ DAILY Sertraline [Zoloft] 50 mg PO DAILY hydroCHLOROthiazide [Hydrodiuril] 25 mg PO DAILY 04/23/20 13:21 Nebulizer/MDI Tx. [RC] .Q4 PRN 04/24/20 05:00 BNP - B-NATRIURETIC PEPTIDE [IAI] DAILYLAB MAGNESIUM [CHEM] DAILYLAB 04/24/20 08:00 Echo Transthoracic Complete [ECHO] Routine 04/24/20 09:00 Chest 1 View X-Ray [XR] DAILY Metoprolol Succinate [Toprol Xl] 25 mg PO DAILY Subjective - Subjective Patient Reports: Feeling Better, Resting Comfortably, Other (Restless legs seem more restless, there is "shaking all the way from her toes up to her shoulders") Objective Vital Signs: Vital Signs - 24 hr 04/22/20 04/22/20 04/22/20 16:50 17:22 21:00 Temperature 36 C L 36.6 C Heart Rate Heart Rate [ 68 82 Radial] Respiratory 19 19 Rate Blood Pressure 145/71 H 150/68 H [Right Brachial artery] O2 Saturation 99 95 97 04/22/20 04/23/20 04/23/20 21:30 00:04 05:00 Temperature 36.6 C 36.2 C L Heart Rate Heart Rate [ 75 87 Radial] Respiratory 18 Rate Blood Pressure 143/69 H 140/66 H [Right Brachial artery] O2 Saturation 95 93 92 04/23/20 04/23/20 04/23/20 07:20 11:10 13:20 Temperature 36.7 C 36.9 C Heart Rate 110 H Heart Rate [ 84 83 Radial] Respiratory 20 20 18 Rate Blood Pressure 144/72 H 136/80 H [Right Brachial artery] O2 Saturation 96 92 92 04/23/20 13:22 Temperature Heart Rate 108 H Heart Rate [ Radial] Respiratory 18 Rate Blood Pressure [Right Brachial artery] O2 Saturation Oxygen O2 Source Nasal cannula Oxygen Flow Rate 4 I&O (Last 24 Hrs): Intake and Output Totals x24h 04/21/20 04/22/20 04/23/20 23:59 23:59 22:59 Intake Total 1400 1030 Output Total 150 Balance 1250 1030 General: Alert, Oriented x3 HEENT: Mucous membr. moist/pink, Other (Wearing O2 by nasal cannula) Neck: Supple, Other (Obese and cannot rule out JVD) Neuro: Alert, Non Focal Cardiovascular: Regular rate, No murmurs Respiratory: No respiratory distress, Breath sounds nml Abdomen: Soft, Other (Obese with a pannus) Extremities: Other (2+ pitting edema to the knees) - Results Results: Laboratory Results WBC 5.8 x10^3/uL (4.8-10.8) 04/23/20 05:45 RBC 4.66 10^6/uL (4.20-5.40) 04/23/20 05:45 Hgb 13.1 g/dL (12.0-16.0) 04/23/20 05:45 Hct 44.9 % (37.0-47.0) 04/23/20 05:45 MCV 96.4 fL (81.0-99.0) 04/23/20 05:45 MCH 28.1 pg (27.0-31.0) 04/23/20 05:45 MCHC 29.2 g/dL (32.0-36.0) L 04/23/20 05:45 RDW 14.2 % (12.0-15.0) 04/23/20 05:45 Plt Count 175 10^3/uL (130-450) 04/23/20 05:45 MPV 9.5 fL (7.9-10.8) 04/23/20 05:45 Neut # (Auto) 5.1 10^3/uL (1.5-6.6) 04/23/20 05:45 Lymph # (Auto) 0.3 10^3/uL (1.5-3.5) L 04/23/20 05:45 Dickinson # (Auto) 0.3 10^3/uL (0.0-1.0) 04/23/20 05:45 Eos # (Auto) 0.0 10^3/uL (0.0-0.7) 04/23/20 05:45 Baso # (Auto) 0.0 10^3/uL (0.0-0.1) 04/23/20 05:45 Absolute Nucleated RBC 0.02 x10^3/uL 04/23/20 05:45 Nucleated RBC % 0.3 /100WBC 04/23/20 05:45 Sodium 138 mmol/L (135-145) 04/23/20 05:45 Potassium 4.8 mmol/L (3.5-5.0) 04/23/20 05:45 Chloride 95 mmol/L (101-111) L 04/23/20 05:45 Carbon Dioxide 35 mmol/L (21-32) H 04/23/20 05:45 Anion Gap 8.0 (6-13) 04/23/20 05:45 BUN 30 mg/dL (6-20) H 04/23/20 05:45 Creatinine 0.9 mg/dL (0.4-1.0) 04/23/20 05:45 Estimated GFR (MDRD) 62 (>89) L 04/23/20 05:45 Glucose 193 mg/dL (70-100) H 04/23/20 05:45 POC Whole Bld Glucose 197 mg/dL (70 - 100) H 04/23/20 11:05 Lactic Acid 0.9 mmol/L (0.5-2.2) 04/22/20 13:16 Calcium 8.7 mg/dL (8.5-10.3) 04/23/20 05:45 Troponin I High Sens 8.4 ng/L (2.3-14.8) 04/22/20 13:30 B-Natriuretic Peptide 117 pg/mL (5-100) H 04/22/20 13:30 Nasal Adenovirus (PCR) NOT DETECTED 04/22/20 13:28 Nasal B. parapertussis DNA (PCR) NOT DETECTED 04/22/20 13:28 Nasal Coronavir 229E PCR NOT DETECTED 04/22/20 13:28 Nasal Coronavir HKU1 PCR NOT DETECTED 04/22/20 13:28 Nasal Coronavir NL63 PCR NOT DETECTED 04/22/20 13:28 Nasal Coronavir OC43 PCR NOT DETECTED 04/22/20 13:28 Nasal Enterovir/Rhinovir PCR NOT DETECTED 04/22/20 13:28 Nasal Influenza B PCR NOT DETECTED 04/22/20 13:28 Nasal Influenza A PCR NOT DETECTED 04/22/20 13:28 Nasal Parainfluen 1 PCR NOT DETECTED 04/22/20 13:28 Nasal Parainfluen 2 PCR NOT DETECTED 04/22/20 13:28 Nasal Parainfluen 3 PCR NOT DETECTED 04/22/20 13:28 Nasal Parainfluen 4 PCR NOT DETECTED 04/22/20 13:28 Nasal RSV (PCR) NOT DETECTED 04/22/20 13:28 Nasal B.pertussis DNA PCR NOT DETECTED 04/22/20 13:28 Nasal C.pneumoniae (PCR) NOT DETECTED 04/22/20 13:28 Yash Human Metapneumo PCR NOT DETECTED 04/22/20 13:28 Nasal M.pneumoniae (PCR) NOT DETECTED 04/22/20 13:28 Nasal SARS-CoV-2 (PCR) NOT DETECTED 04/22/20 13:28
[2020-04-23 16:19] LABS: ALBUMIN 3.5 g/dL (3.2-5.5); ALKALINE PHOSPHATASE 79 IU/L (42-121); ALT ALANINE AMINOTRANSFERASE 17 IU/L (10-60); AST ASPARTATE AMINOTRANSFERASE 17 IU/L (10-42); BILIRUBIN,TOTAL 0.5 mg/dL (0.2-1.0)
[2020-04-23 16:50] LABS: BILIRUBIN,DIRECT < 0.1 mg/dL (0.1-0.5)
[2020-04-23] MEDS: ATORVASTATIN 10 MG TABLET PO SCH (20:21)
[2020-04-23] MEDS: PRAMIPEXOLE 0.25 MG TABLET PO SCH (20:21)
[2020-04-23] MEDS ORDERED: PRAMIPEXOLE 0.25 MG TABLET PO SCH (21:00)
[2020-04-24] MEDS: ACETAMINOPHEN 325 MG TABLET PO PRN ×2 (02:19→08:11)
[2020-04-24 05:32] LABS: BASOPHILS % (AUTO) 0.2 %; HGB - HEMOGLOBIN 13.1 g/dL (12.0-16.0); LYMPHOCYTES # (AUTO) 0.4 10^3/uL (1.5-3.5); LYMPHOCYTES % (AUTO) 7.4 %; MEAN CORPUSCULAR HEMOGLOBIN 28.1 pg (27.0-31.0); MEAN CORPUSCULAR HGB CONC 28.9 g/dL (32.0-36.0); MEAN CORPUSCULAR VOLUME 97.2 fL (81.0-99.0); MEAN PLATELET VOLUME 9.7 fL (7.9-10.8); MONOCYTES # (AUTO) 0.3 10^3/uL (0.0-1.0); NEUTROPHILS % (AUTO) 85.7 %; PLT - PLATELET COUNT 180 10^3/uL (130-450); RED BLOOD COUNT 4.66 10^6/uL (4.20-5.40); RED CELL DISTRIBUTION WIDTH 14.3 % (12.0-15.0); WHITE BLOOD COUNT 5.9 x10^3/uL (4.8-10.8)
[2020-04-24 05:38] LABS: CALCIUM 8.9 mg/dL (8.5-10.3); CREATININE 0.8 mg/dL (0.4-1.0); MAGNESIUM 2.3 mg/dL (1.7-2.8)
[2020-04-24 05:59] LABS: PLATELET ESTIMATE, MANUAL NORMAL (130-450,000) (NORMAL); PLATELET MORPHOLOGY NORMAL APPEARANCE (NORMAL); RBC MORPHOLOGY (MULTIPLE) 1+ HYPOCHROMASIA (NORMAL)
[2020-04-24] MEDS: SODIUM CHLORIDE FLUSH 0.9% 10 ML SYRINGE IVP SCH ×3 (07:28→16:47)
[2020-04-24] MEDS: methylPREDNISolone SUCCINATE 40 MG/ML VIAL IVP SCH ×3 (07:28→21:08)
[2020-04-24] MEDS: IPRATROPIUM/ALBUTEROL 3 ML NEB INH PRN (07:57)
[2020-04-24] MEDS: INSULIN ASPART 300 UNIT/3 ML PEN SUBQ SCH ×4 (08:09→21:08)
[2020-04-24] MEDS: levoFLOXacin 250 MG TABLET PO SCH (08:10)
[2020-04-24] MEDS: guaiFENesin 600 MG TABLET PO SCH ×2 (08:11→21:08)
[2020-04-24] MEDS: hydroCHLOROthiazide 25 MG TABLET PO SCH (08:11)
[2020-04-24] MEDS: SERTRALINE 50 MG TABLET PO SCH (08:11)
[2020-04-24] MEDS: FAMOTIDINE 20 MG TABLET PO SCH ×2 (08:11→21:08)
[2020-04-24] MEDS: METOPROLOL SUCCINATE 25 MG TABLET PO SCH (08:11)
[2020-04-24] MEDS: ENOXAPARIN 40 MG/0.4 ML SYRINGE SUBQ SCH (08:11)
--- NOTE | 2020-04-24 08:49 | XRAY Report ---
PROCEDURE: Chest 1 View X-Ray INDICATIONS: F/U CHF VS PNEUMONIA TECHNIQUE: One view of the chest was acquired. COMPARISON: 04/22/2020. FINDINGS: Surgical changes and devices: None. Lungs and pleura: There is slight interval improved aeration with decreased pulmonary edema. There a re decreased but persistent left retrocardiac opacity consistent with consolidation or atelectasis. N o pleural effusions or pneumothorax. Mediastinum: Mediastinal contours appear unchanged. Heart size is enlarged. Bones and chest wall: No suspicious bony lesions. Overlying soft tissues appear unremarkable. IMPRESSION: 1. Interval decreased but persistent pulmonary edema. 2. Slightly decreased but persistent left retrocardiac consolidation/pneumonia versus atelectasis. Reviewed by: Richy Quach MD on 04/24/2020 8:48 AM [facility] Approved by: Richy Quach MD on 04/24/2020 8:48 AM [facility] Station ID: [id number]
[2020-04-24] MEDS ORDERED: FUROSEMIDE 20 MG TABLET PO SCH (09:00)
[2020-04-24 10:08] LABS: HEMOGLOBIN A1c% 6.7 % (4.27-6.07)
[2020-04-24] MEDS: MULTIVITAMIN TABLET PO SCH (10:39)
[2020-04-24] MEDS ORDERED: FUROSEMIDE 20 MG/2 ML VIAL IVP ONE (14:00)
--- NOTE | 2020-04-24 15:03 | PROVIDER PROGRESS NOTE ---
Assessment/Plan - Problem List (1) Acute respiratory failure with hypoxia Assessment/Plan: She is still needing supplemental oxygen. Will continue to treat the pneumonia and the CHF. Possibly she will need a walking oximetry test on the day of discharge for home O2. Possible discharge tomorrow (2) CAP (community acquired pneumonia) Assessment/Plan: Chest x-ray today done in follow-up shows she did have both an infiltrate and CHF. The infiltrate has improved. She was never able to produce a sputum sample. She is now not coughing for the last 1-1/2 days Continue to treat for an empiric community-acquired pneumonia. (3) CHF (congestive heart failure) Assessment/Plan: A follow-up chest x-ray was done and indeed showed both infiltrate and CHF. The CHF has improved. We are awaiting the Echo (over the weekend) to determine direction of management. The Echo was done today and shows preserved LV systolic function, bur diastolic dysfunction is present. She also has significant cor pulmonale with dilated right ventricle and mild pulmonary hypertension. Patient was advised that we change to IV Lasix for more aggressive diuresis. She is not ready for discharge yet. Follow I's and O's, daily weights, electrolytes, magnesium. Continue supplemental oxygen. On the day of discharge, she was up walking oximetry test to determine if she needs home O2 (4) Cor pulmonale Assessment/Plan: This was confirmed on her Echo today. She admits to having leg edema chronically for several months. There has been no improvement by being on her home HCTZ. Lasix was ordered starting today and she is having good diuresis. Continue supplemental oxygen. We will work-up for possible obesity hypoventilation with a bedside/overnight oximetry exam. No discharge yet, she needs more aggressive diuresis (5) Asthma exacerbation Assessment/Plan: This is one of the reasons she may have cor pulmonale. She has been put on nebs and IV steroids. Her wheezing stopped yesterday. We will taper the steroids to off rapidly. (6) HTN (hypertension) Assessment/Plan: BP is poorly controlled in the 170 systolic range here. She was on Amlodipine 10 mg a day, this is the dose that adds to leg edema. The Amlodipine was stopped. HCTZ was continued here until changed today to loop diuretic for better diuresis. She was started on new Toprol-XL 25 mg daily yesterday for blood pressure control and for presumed treatment of systolic heart failure. We will continue this because it is a pure beta 1 antagonist which is safe to use in asthmatics.. Will resume her home dose of Enalapril now that she has stopped coughing, e specially since it is beneficial in a diabetic for renal protection (7) Restless leg syndrome Assessment/Plan: She is requesting a higher dose because this is not controlling her symptoms. I discussed this with pharmacy, will increase Mirapex to 0.5 mg nightly (8) Diabetes mellitus Qualifiers: Diabetes mellitus type: type 2 Assessment/Plan: A1c was 6.7 showing good control. Dietitian to see her today regarding morbid obesity, diabetic control and now CHF teaching (9) Morbid obesity with body mass index of 40.0-49.9 Assessment/Plan: Dietary consult pending today With this morbid obesity, I suspect she has obesity-hypoventilation syndrome/s leep apnea which may be contributing to cor pulmonale. We will order overnight oximetry test. (10) Depression Assessment/Plan: She continues on her home meds for this. (11) GERD (gastroesophageal reflux disease) Assessment/Plan: Continues on her home meds for this. (12) Hyperlipidemia Assessment/Plan: Continues on her home meds for this. - Current Meds Current Meds: Current Medications Generic Name Dose Route Start Last Admin Trade Name Freq PRN Reason Stop Dose Admin Acetaminophen 650 mg 04/22/20 15:33 04/24/20 08:11 Tylenol PO 650 mg Q4HR PRN Administration Pain or Fever > 38C (100.4F) Albuterol/Ipratropium 3 ml 04/22/20 15:36 04/24/20 07:57 Duoneb INH 3 ml Q4HR PRN Administration Wheezing Atorvastatin Calcium 10 mg 04/22/20 21:00 04/23/20 20:21 Lipitor PO 10 mg QPM RONNY Administration Enoxaparin Sodium 40 mg 04/23/20 09:00 04/24/20 08:11 Lovenox SUBQ 40 mg DAILY RONNY Administration Famotidine 20 mg 04/22/20 21:00 04/24/20 08:11 Pepcid PO 20 mg BID RONNY Administration Guaifenesin 600 mg 04/22/20 21:00 04/24/20 08:11 Mucinex PO 600 mg BID RONNY Administration Insulin Aspart 1 - 5 unit 04/22/20 21:00 04/24/20 11:56 Novolog SUBQ 1 unit 0800,1200,1700,2100 RONNY Administration Protocol Levofloxacin 750 mg 04/24/20 09:00 04/24/20 08:10 Levaquin PO 750 mg DAILY RONNY Administration Methylprednisolone 40 mg 04/22/20 22:00 04/24/20 13:57 Solu-Medrol (40mg Vial) IVP 40 mg TID RONNY Administration Metoprolol Succinate 25 mg 04/24/20 09:00 04/24/20 08:11 Toprol Xl PO 25 mg DAILY RONNY Administration Multivitamins 1 tab 04/24/20 08:00 04/24/20 10:39 Theragran PO 1 tab DAILYWM RONNY Administration Sertraline HCl 50 mg 04/23/20 09:00 04/24/20 08:11 Zoloft PO 50 mg DAILY RONNY Administration Sodium Chloride 10 ml 04/22/20 15:33 04/23/20 21:37 Normal Saline Flush 0.9% IVP 10 ml PRN PRN Administration NEEDED PER PROVIDER ORDERS Sodium Chloride 10 ml 04/22/20 17:00 04/24/20 08:12 Normal Saline Flush 0.9% IVP 10 ml 0100,0900,1700 RONNY Administration - Lab Result Fish Bone Diagrams: 04/24/20 05:20 04/24/20 05:20 - Additional Planning My Orders: My Active Orders 04/24/20 08:00 Nutrition Consult [CONS] Routine Echo Transthoracic Complete [ECHO] Routine Multivitamin [Theragran] 1 tab PO DAILYWM 04/24/20 09:00 Metoprolol Succinate [Toprol Xl] 25 mg PO DAILY 04/24/20 21:00 Pramipexole [Mirapex] 0.5 mg PO QPM 04/25/20 07:00 FUROSEMIDE INJ 20mg VIAL [LASIX INJ 20mg VIAL] 20 mg IVP 0700 Subjective - Subjective Patient Reports: Feeling Better (No cough, no shortness of breath when she is wearing her oxygen) Nursing Reports: Other (She was short of breath and desaturated when she went to the bathroom breathing room air) Objective Vital Signs: Vital Signs - 24 hr 04/23/20 04/23/20 04/24/20 15:57 20:50 00:16 Temperature 36.9 C 36.9 C 36.9 C Heart Rate Heart Rate [ 106 H 85 76 Brachial] Respiratory 16 24 21 Rate Blood Pressure 142/76 H 153/75 H 158/86 H [Right Brachial artery] O2 Saturation 94 93 94 04/24/20 04/24/20 04/24/20 04:39 05:50 07:39 Temperature 36.8 C 36.8 C 36.8 C Heart Rate 73 Heart Rate [ 73 79 Brachial] Respiratory 20 20 18 Rate Blood Pressure 169/79 H 155/77 H [Right Brachial artery] O2 Saturation 94 94 94 04/24/20 04/24/20 08:01 12:04 Temperature 37.3 C Heart Rate 80 Heart Rate [ 71 Brachial] Respiratory 20 20 Rate Blood Pressure 152/79 H [Right Brachial artery] O2 Saturation 95 Oxygen O2 Source Nasal cannula Oxygen Flow Rate 4 I&O (Last 24 Hrs): Intake and Output Totals x24h 04/23/20 04/23/20 04/24/20 00:59 23:59 23:59 Intake Total 540 Output Total Balance 540 General: Alert, Oriented x3 HEENT: Mucous membr. moist/pink, Other (Wearing O2 by nasal cannula) Neck: Other (Obese and cannot rule out JVD) Neuro: Alert, Non Focal Cardiovascular: Regular rate Respiratory: No respiratory distress, Breath sounds nml Abdomen: Soft, Other (Beats with pannus) Extremities: Other (2+ pitting edema to above the knees) - Results Results: Laboratory Results WBC 5.9 x10^3/uL (4.8-10.8) 04/24/20 05:20 RBC 4.66 10^6/uL (4.20-5.40) 04/24/20 05:20 Hgb 13.1 g/dL (12.0-16.0) 04/24/20 05:20 Hct 45.3 % (37.0-47.0) 04/24/20 05:20 MCV 97.2 fL (81.0-99.0) 04/24/20 05:20 MCH 28.1 pg (27.0-31.0) 04/24/20 05:20 MCHC 28.9 g/dL (32.0-36.0) L 04/24/20 05:20 RDW 14.3 % (12.0-15.0) 04/24/20 05:20 Plt Count 180 10^3/uL (130-450) 04/24/20 05:20 MPV 9.7 fL (7.9-10.8) 04/24/20 05:20 Neut # (Auto) 5.0 10^3/uL (1.5-6.6) 04/24/20 05:20 Lymph # (Auto) 0.4 10^3/uL (1.5-3.5) L 04/24/20 05:20 Castro # (Auto) 0.3 10^3/uL (0.0-1.0) 04/24/20 05:20 Eos # (Auto) 0.0 10^3/uL (0.0-0.7) 04/24/20 05:20 Baso # (Auto) 0.0 10^3/uL (0.0-0.1) 04/24/20 05:20 Absolute Nucleated RBC 0.03 x10^3/uL 04/24/20 05:20 Nucleated RBC % 0.5 /100WBC 04/24/20 05:20 Manual Slide Review Indicated 04/24/20 05:20 WBC Morphology NORMAL APPEARANCE (NORMAL) 04/24/20 05:20 Platelet Estimate NORMAL (130-450,000) (NORMAL) 04/24/20 05:20 Platelet Morphology NORMAL APPEARANCE (NORMAL) 04/24/20 05:20 RBC Morph Micro Appear 1+ HYPOCHROMASIA (NORMAL) 04/24/20 05:20 Sodium 140 mmol/L (135-145) 04/24/20 05:20 Potassium 4.9 mmol/L (3.5-5.0) 04/24/20 05:20 Chloride 94 mmol/L (101-111) L 04/24/20 05:20 Carbon Dioxide 37 mmol/L (21-32) H 04/24/20 05:20 Anion Gap 9.0 (6-13) 04/24/20 05:20 BUN 25 mg/dL (6-20) H 04/24/20 05:20 Creatinine 0.8 mg/dL (0.4-1.0) 04/24/20 05:20 Estimated GFR (MDRD) 71 (>89) L 04/24/20 05:20 Glucose 211 mg/dL (70-100) H 04/24/20 05:20 POC Whole Bld Glucose 158 mg/dL (70 - 100) H 04/24/20 11:41 Estimat Average Glucose 146 mg/dL (70-100) H 04/24/20 05:20 Hemoglobin A1c % 6.7 % (4.27-6.07) H 04/24/20 05:20 Lactic Acid 0.9 mmol/L (0.5-2.2) 04/22/20 13:16 Calcium 8.9 mg/dL (8.5-10.3) 04/24/20 05:20 Magnesium 2.3 mg/dL (1.7-2.8) 04/24/20 05:20 Total Bilirubin 0.5 mg/dL (0.2-1.0) 04/23/20 05:54 Direct Bilirubin < 0.1 mg/dL (0.1-0.5) L 04/23/20 05:54 AST 17 IU/L (10-42) 04/23/20 05:54 ALT 17 IU/L (10-60) 04/23/20 05:54 Alkaline Phosphatase 79 IU/L (42-121) 04/23/20 05:54 Troponin I High Sens 8.4 ng/L (2.3-14.8) 04/22/20 13:30 B-Natriuretic Peptide 127 pg/mL (5-100) H 04/24/20 05:20 Total Protein 7.0 g/dL (6.7-8.2) 04/23/20 05:54 Albumin 3.5 g/dL (3.2-5.5) 04/23/20 05:54 Globulin 3.5 g/dL (2.1-4.2) 04/23/20 05:54 Nasal Adenovirus (PCR) NOT DETECTED 04/22/20 13:28 Nasal B. parapertussis DNA (PCR) NOT DETECTED 04/22/20 13:28 Nasal Coronavir 229E PCR NOT DETECTED 04/22/20 13:28 Nasal Coronavir HKU1 PCR NOT DETECTED 04/22/20 13:28 Nasal Coronavir NL63 PCR NOT DETECTED 04/22/20 13:28 Nasal Coronavir OC43 PCR NOT DETECTED 04/22/20 13:28 Nasal Enterovir/Rhinovir PCR NOT DETECTED 04/22/20 13:28 Nasal Influenza B PCR NOT DETECTED 04/22/20 13:28 Nasal Influenza A PCR NOT DETECTED 04/22/20 13:28 Nasal Parainfluen 1 PCR NOT DETECTED 04/22/20 13:28 Nasal Parainfluen 2 PCR NOT DETECTED 04/22/20 13:28 Nasal Parainfluen 3 PCR NOT DETECTED 04/22/20 13:28 Nasal Parainfluen 4 PCR NOT DETECTED 04/22/20 13:28 Nasal RSV (PCR) NOT DETECTED 04/22/20 13:28 Nasal B.pertussis DNA PCR NOT DETECTED 04/22/20 13:28 Nasal C.pneumoniae (PCR) NOT DETECTED 04/22/20 13:28 Yash Human Metapneumo PCR NOT DETECTED 04/22/20 13:28 Nasal M.pneumoniae (PCR) NOT DETECTED 04/22/20 13:28 Nasal SARS-CoV-2 (PCR) NOT DETECTED 04/22/20 13:28
[2020-04-24] MEDS: LACTOBACILLUS RHAMNOSUS GG CAPSULE PO SCH (16:47)
[2020-04-24] MEDS ORDERED: PRAMIPEXOLE 0.25 MG TABLET PO SCH ×2 (19:00→21:00)
[2020-04-24] MEDS: ENALAPRIL 5 MG TABLET PO SCH (19:07)
[2020-04-24] MEDS ORDERED: ENALAPRIL 5 MG TABLET PO SCH (21:00)
[2020-04-24] MEDS: SODIUM CHLORIDE FLUSH 0.9% 10 ML SYRINGE IVP PRN (21:08)
[2020-04-24] MEDS: ATORVASTATIN 10 MG TABLET PO SCH (21:08)
[2020-04-25] MEDS: SODIUM CHLORIDE FLUSH 0.9% 10 ML SYRINGE IVP SCH ×2 (00:27→08:20)
[2020-04-25 06:03] LABS: BASOPHILS % (AUTO) 0.2 %; HGB - HEMOGLOBIN 13.9 g/dL (12.0-16.0); LYMPHOCYTES # (AUTO) 0.6 10^3/uL (1.5-3.5); LYMPHOCYTES % (AUTO) 10.3 %; MEAN CORPUSCULAR HEMOGLOBIN 28.4 pg (27.0-31.0); MEAN CORPUSCULAR HGB CONC 30.2 g/dL (32.0-36.0); MEAN CORPUSCULAR VOLUME 93.9 fL (81.0-99.0); MEAN PLATELET VOLUME 9.3 fL (7.9-10.8); MONOCYTES # (AUTO) 0.5 10^3/uL (0.0-1.0); MONOCYTES % (AUTO) 8.6 %; NEUTROPHILS # (AUTO) 4.3 10^3/uL (1.5-6.6); NEUTROPHILS % (AUTO) 79.8 %; PLT - PLATELET COUNT 184 10^3/uL (130-450); WHITE BLOOD COUNT 5.4 x10^3/uL (4.8-10.8)
[2020-04-25 06:07] LABS: CALCIUM 9.2 mg/dL (8.5-10.3); CREATININE 0.7 mg/dL (0.4-1.0)
[2020-04-25] MEDS: methylPREDNISolone SUCCINATE 40 MG/ML VIAL IVP SCH (06:43)
[2020-04-25] MEDS: SODIUM CHLORIDE FLUSH 0.9% 10 ML SYRINGE IVP PRN (06:44)
[2020-04-25] MEDS ORDERED: FUROSEMIDE 20 MG/2 ML VIAL IVP SCH (07:00)
[2020-04-25] MEDS: LACTOBACILLUS RHAMNOSUS GG CAPSULE PO SCH (08:17)
[2020-04-25] MEDS: METOPROLOL SUCCINATE 25 MG TABLET PO SCH (08:17)
[2020-04-25] MEDS: guaiFENesin 600 MG TABLET PO SCH (08:18)
[2020-04-25] MEDS: MULTIVITAMIN TABLET PO SCH (08:18)
[2020-04-25] MEDS: SERTRALINE 50 MG TABLET PO SCH (08:18)
[2020-04-25] MEDS: FAMOTIDINE 20 MG TABLET PO SCH (08:18)
[2020-04-25] MEDS: levoFLOXacin 250 MG TABLET PO SCH (08:18)
[2020-04-25] MEDS: ENALAPRIL 5 MG TABLET PO SCH (08:19)
[2020-04-25] MEDS: INSULIN ASPART 300 UNIT/3 ML PEN SUBQ SCH ×2 (08:19→11:58)
[2020-04-25] MEDS: ENOXAPARIN 40 MG/0.4 ML SYRINGE SUBQ SCH (08:19)
[2020-04-25] MEDS: IPRATROPIUM/ALBUTEROL 3 ML NEB INH PRN (08:26)
[2020-04-25] MEDS ORDERED: polyethylene glycoL 3350 17 GM PACKET PO SCH (09:00)
[2020-04-25 11:38] VITALS: BP 177/84
--- NOTE | 2020-04-25 12:52 | Discharge Plan ---
Discharge Plan Problem Reviewed?: Yes Disposition: Home, Self Care Condition: Stable Prescriptions: Lactobacillus Rhamnosus GG [Culturelle] 1 cap PO DAILY #4 capsule Furosemide [Lasix] 20 mg PO Q48H #15 tablet levoFLOXacin [Levaquin] 750 mg PO DAILY #4 tablet Diet: Diabetic (Low sodium diet and fluid restrict to less than 2.5L per day maximum) Activity Restrictions: Activity as Tolerated Shower Restrictions: No Driving Restrictions: No Instruction Topics: Snoring Sleep Apnea, Heart Failure Sleep Apnea Health Concerns: You were admitted with several days of worsening shortness of breath and several weeks of leg swelling. We found you to have a pneumonia and also fluid in your lungs. The evaluation of the fluid showed that you have Cor Pulmonale, which means right heart strain caused by pulmonary disease. Your asthma might be contributing, but more likely you have sleep apnea which has gone undiagnosed. While here, you had oxygen testing done overnight and your oxygen level drops significantly. Also, during walking your oxygen level drops. You are being discharged home with a new prescription for home oxygen to set at 2L/min and use with activity and during sleep or naps. You need to have an official sleep study done as an outpatient, for being prescribed a CPAP or BiPAP machine, and your PCP should coordinate all of this. Possibly, your PCP will refer you to a Director Of Quality Improvement (lung specialist). You are being sent home with new medicine for the heart and several more days of an antibiotic. To prevent diarrhea on the antibiotic, a probiotic was also prescribed or you may eat food like yogurt with active cultures. The new prescriptions were electronically sent to your pharmacy in [place]. Resume all your other prehospital medications. Please notice the salt restriction and fluid restriction and more careful diabetic diet management. Please see your doctor in the next 1 to 2 weeks for hospital follow-up. Plan of Treatment: As above. Care Goals: Improvement in symptoms and stabilization are the goals. Assessment: The patient understands and is agreeable with the plan. Additional Instructions or Follow Up instructions: You have new or worsening symptoms, call your PCP for advice or come to the ER. No Smoking: If you smoke, Please STOP! Call for help. Follow-up with: Hiwot Robertson MD [Primary Care Provider] -
--- NOTE | 2020-04-25 13:08 | DISCHARGE SUMMARY ---
Discharge Summary Admit Date: 04/22/20 Discharge Date: 04/25/20 Discharging Provider: Dr Yara Tejada Primary Care Provider: Dr Hiwot Robertson Condition at Discharge: Stable Discharge Disposition: 01 Home, Self Care - HPI History of Present Illness: From the admission H&P of Dr. Huong Odonnell: Patient is a 69-year-old female with medical history significant for hyperlipidemia, diabetes mellitus, hypertension, depression, restless leg syndrome and chronic bronchitis/asthma who presented to the ED with dyspnea. She has been nasal congestion, increased/worsening fatigue, trouble sleeping and coughing for the past 1 week. She went to the [facility] where it was reported that her oxygen saturation was in the 60s. She was given a breathing treatment and advised to go to the emergency department for further evaluation and treatment. Chest x-ray was concerning for right lower lung pneumonia vs pulmonary edema. As a result she was presented for admission. This history was mainly provided by the patient's Sister Claudine because the patient is not able to provide a reliable history at the moment. It took significant prompting to wake her up from sleep and she currently mainly anxious that she does not know to any questions asked. Her son reports that she did not complain of chest pain but she was short of breath and was wheezing. The patient informed the ED physicians that she had been coughing up clear sputum for the past 1 week. She did not have a fever or chills. Yesterday she was nauseous but did not vomit. She has +1 lower extremity pitting edema. At baseline the patient is independent of activities of living. She lives with her sister and her mother and she is the main person in charge with keeping the house and doing groceries. - HOSPITAL COURSE Hospital Course: (1) Acute respiratory failure with hypoxia She was put on supplemental oxygen at 2L/min, which was slowly, over several days, weaned to room air. She had a nocturnal desaturation study where the patient's SPO2 dropped below 88% for longer than 5 minutes, then on at 2 L/min, while asleep, SPO2 increased to 91%. Possibly she will need a walking oximetry test on the day Juanita of discharge the patient had a walking oximetry test. SPO2 at rest on room air maintained at 90%. With exertion while on room air, SPO2 decreased to 85%. On 1 L/min, SPO2 only increased to 87% and on 2 L/min, SPO2 stabilized at 90%. I am ordering home O2 at 2 L/min via nasal cannula during activity and while asleep. She needs to have an official sleep study done as an outpatient, for being prescribed a CPAP or BiPAP machine, and the PCP should coordinate this. (2) CAP (community acquired pneumonia) Chest x-ray follow-up shows she did have both an infiltrate and CHF. The infiltrate improved on iv Levaquin 750 mg daily. She was never able to produce a sputum sample, and then her cough abated. She was discharged to take 4 more days of Levaquin 750 mg daily, along with 4 days of Florastor. (3) CHF (congestive heart failure) The follow-up chest x-ray indeed showed both infiltrate and CHF. She was put on Lasix and the CHF improved. An Echo was done that showed preserved LV systolic function, but diastolic dysfunction was present. Her meds were changed at discharge and she had the oximetry test (above). (4) Cor pulmonale She also has significant cor pulmonale with dilated right ventricle and mild pulmonary hypertension, seen on Echo. She admited to having leg edema chronically for several months. There had been no improvement by being on her home HCTZ. Lasix was ordered. Supplemental oxygen was ordered and she needs evaluation for causes, such as possible obesity hypoventilation syndrome/ sleep apnea. (5) Asthma exacerbation This is one of the reasons she may have cor pulmonale. She was treated with nebs and IV steroids while here. Her wheezing stopped and we tapered the steroids to off rapidly. (6) HTN (hypertension) BP was poorly controlled in the 170 systolic range here. She was on Amlodipine 10 mg a day at home, which is the dose that adds to leg edema. The Amlodipine was stopped. HCTZ was continued until changed to loop diuretic, for better diuresis. She was started on new Toprol-XL 25 mg daily for blood pressure contr ol and for treatment of diastolic heart failure. This was chosen because it is a pure beta 1 antagonist, which is safe to use in asthmatics. We also resumed her home dose of Enalapril when she stopped coughing, especially since it is beneficial in a diabetic for renal protection (7) Restless leg syndrome She was on Mirapex 0.5 mg nightly (8) Diabetes mellitus A1c was 6.7 showing good control. Dietitian saw her regarding morbid obesity, diabetic control and CHF teaching (9) Morbid obesity with body mass index of 40.0-49.9 With this morbid obesity, I suspect she has obesity-hypoventilation syndrome/sleep apnea which may be contributing to cor pulmonale. (10) Depression She was continued on her home meds for this. (11) GERD (gastroesophageal reflux disease) We continued her home meds for this. (12) Hyperlipidemia We continued her home meds for this. - ALLERGIES Allergies/Adverse Reactions: Allergies Allergy/AdvReac Type Severity Reaction Status Date / Time Penicillins Allergy Hives Verified 02/01/14 12:29 bees Allergy Edema Uncoded 02/08/14 14:55 transpore tape Allergy Itching Uncoded 02/08/14 14:55 - MEDICATIONS Home Medications: Ambulatory Orders Medication Instructions Recorded Confirmed Amlodipine Besylate [Norvasc] 10 mg PO DAILY 04/22/20 04/22/20 Enalapril Maleate [Vasotec] 20 mg PO BID 04/22/20 04/23/20 Metformin HCl [Glucophage] 1,000 mg PO BID 04/22/20 04/22/20 Sertraline HCl 50 mg PO DAILY 04/22/20 04/22/20 Simvastatin [Zocor] 20 mg PO QPM 04/22/20 04/22/20 carvediloL [Coreg] 12.5 mg PO BID 04/22/20 04/22/20 glipiZIDE [Glucotrol] 5 mg PO BID 04/22/20 04/22/20 Cranberry 500 mg PO BID 04/23/20 04/23/20 Docusate Sodium 250Mg Capsule 500 mg PO DAILY 04/23/20 04/23/20 [Colace 250Mg Capsule] Ibuprofen [Advil] 400 mg PO BID 04/23/20 04/23/20 Multivitamin [Theragran] 1 each PO DAILY 04/23/20 04/23/20 Pramipexole Di-HCl [Mirapex] 0.375 mg PO QPM 04/23/20 04/23/20 Furosemide [Lasix] 20 mg PO Q48H #15 tablet 04/25/20 Lactobacillus Rhamnosus GG 1 cap PO DAILY #4 capsule 04/25/20 [Culturelle] levoFLOXacin [Levaquin] 750 mg PO DAILY #4 tablet 04/25/20 - PHYSICAL EXAM AT DISCHARGE General Appearance: positive: No acute distress, Alert Eyes Bilateral: positive: Normal inspection, EOMI ENT: positive: ENT inspection nml, No signs of dehydration Neck: positive: Nml inspection, Other (Obese neck and cannot rule out JVD) Respiratory: positive: No respiratory distress, Breath sounds nml Cardiovascular: positive: Regular rate & rhythm, No murmur Abdomen: positive: Non-tender, Other (Obese with a pannus) Skin: positive: Warm, Dry Extremities: positive: Other (1+ pedal edema, there is shrinking and wrinkling of the skin of her shins where they was previously 2+ edema) Neurologic/Psychiatric: positive: Oriented x3, Motor nml - LABS Result Diagrams: 04/25/20 05:45 04/25/20 05:45 - DIAGNOSTIC IMAGING Diagnostic Imaging Results: Final report reviewed - FOLLOW UP Follow Up: See PCP in 5-10 days in hospital follow-up. - TIME SPENT Time Spent in Discharge (Minutes): 50
== END 2020-04-25 14:40 | disposition home or self-care (01) | DRG 189 ==
LOC: ED 12:25 → MS2 15:30
PROVIDERS: ADMIT Internal Medicine; ATTEND Internal Medicine
DX: J96.01 Acute respiratory failure with hypoxia (principal); J18.9 Pneumonia, unspecified organism; E66.2 Morbid (severe) obesity with alveolar hypoventilation; J44.1 Chronic obstructive pulmonary disease with (acute) exacerbation; J44.0 Chronic obstructive pulmonary disease with (acute) lower respiratory infection; I50.30 Unspecified diastolic (congestive) heart failure; I11.0 Hypertensive heart disease with heart failure; E78.5 Hyperlipidemia, unspecified; I27.81 Cor pulmonale (chronic); E11.9 Type 2 diabetes mellitus without complications; I10 Essential (primary) hypertension; J45.909 Unspecified asthma, uncomplicated; G25.81 Restless legs syndrome; Z96.653 Presence of artificial knee joint, bilateral; Z68.36 Body mass index [BMI] 36.0-36.9, adult; Z99.81 Dependence on supplemental oxygen; F32.9 Major depressive disorder, single episode, unspecified; K21.9 Gastro-esophageal reflux disease without esophagitis; Z79.84 Long term (current) use of oral hypoglycemic drugs; Z79.899 Other long term (current) drug therapy
CPT/HCPCS: 36415; 71045; 80048; 80076; 83036; 83605; 83735; 83880; 84484; 85025; 87040; 87631; 93005; 93306; 94640; 94761; 96365; 96366; 96375; 99283; 99285; A9270; J1650; 0202U

== ENCOUNTER 2020-06-30 13:36 | Outpatient (CLI) | payer MEDICARE, BC ==
[2020-06-30 14:19] VITALS: BP 150/84
--- NOTE | 2020-06-30 14:19 | SLEEP CARE CONSULTATION ---
Information from patient questionnaire entered by Sha Moura. I have reviewed and concur with the information entered by Sha Moura. This document represents the service I personally performed and the decisions made by me, Rebecca Jay ARNP. History of Present Illness Service Date and Time: 06/30/2020 1336 Reason for Visit: New patient Chief Complaint: reports: Snoring, Excessive daytime sleepiness, Fatigue, Frequent awakenings at night. denies: Unrefreshed sleep, Observed pauses in breathing Date of Onset: 2 years or more Usual bedtime: 11 PM Time it takes to fall asleep: 45 - 60 minutes Snores at night: Yes Observed to quit breathing while asleep: No Number of times waking at night: 3 - 4 Reasons for waking at night: reports: Gasping for air, Bathroom. denies: Choking, Snoring Toss, Turn, or Twitch while sleeping: No Recalls having dreams: Yes Usually gets out of bed at: 9 - 10 AM Feels refreshed in the morning: No Morning headache: Yes (on occasion; 1 x a week, resolves quickly) Sleepy or fatigued during the day: Yes (after she does anything/ any exertion) Ever fallen asleep while driving: No Takes day naps: Yes (1-2 times a week for about 45 minutes) Dreams during day naps: No Prior sleep studies: No Additional HPI information: I had the pleasure of seeing STACEY AVILA today regarding the possibility of her having a sleep disorder. Her current complaints are snoring and fatigue. She states she had a 2 knee replacements in 2018 and they found in the hospital that she would desat during the night and set off their alarms when off oxygen. In March she was in the hospital for pneumonia and ended up having to come home on oxygen due to low saturations and her doctor there told her she needed a sleep study. She is still on oxygen at home. She is single so does not know if she has any pauses in breathing but she does know she snores and has woken up gasping for air. She has a history of RLS, hypertension, diabetes, asthma, GERD and depression. - Parasomnia Symptoms Ever been unable to move upon waking from sleep: No Walks in sleep: Yes (been 30 years since last incident) Talks in sleep: Yes Ever acted out dreams in sleep: No Ever felt weak in the knees when startled or emotional: No Bothered by creepy, crawly, restless sensations in legs: Yes (has RLS and is on medication) Problems with memory or concentration: No Subjective Initial [place] Sleepiness Scale score: 8 (in 2019) Past Medical History Past Medical History: reports: Hypertension, Diabetes, Arthritis, Anxiety, Asthma, Depression, GERD, Other (RLS; bilateral knee replacement 2018 4 months apart). 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 Patient is single and lives in [place]. Have you smoked in the past 12 months: No Alcohol use: Yes Alcohol amount and frequency: occasional, socially Caffeine use: Yes Caffeine amount and frequency: 3 cups of coffee daily Family History Family history of sleep disordered breathing: No Family Hx Sleep Apnea: Sibling: Snoring (sister) Allergies and Home Medications Drug allergies reviewed: Yes (penicillin, surgical tape) Home medication list reviewed: Yes Allergy and home medication list: Elanapril Amlodipine HCTZ Simvastatin Sertraline Glipizide Metformin Carvedilol Pramipexole vit B12 Allertec Naproxen, as needed Azo cranberry pills Multivitamins Nasalcrom Ventolin HFA Review of Systems Cardiovascular: reports: high blood pressure, leg or foot swelling, have to sleep sitting up Respiratory: reports: shortness of breath, wheeze Urinary: reports: frequency Psychiatric: reports: anxiety, depression Ear/Nose/Throat: reports: nasal congestion, dry mouth/throat Immunologic: reports: sneezing Physical Exam Blood Pressure: 150/84 (usually elevated at doctors office) Cuff size: wrist Heart Rate: 71 O2 Saturation: 93 (RA) Height: 5 ft 8 in Weight: 304 lb Body Mass Index: 46.2 BMI Classification: Morbidly Obese Neck circumference: 17 (inches) Nostrils: patent to airflow Turbinates: swollen Septum: midline Mouth and throat: narrow oropharynx Hard palate: Torus palatinus Uvula visualization: 50% Mallampati Class II Tongue: enlarged in size with teeth blair on lateral edges Tonsils: 2+ Chin and jaw: normal size and position Neck: normal w/o lymphadenopathy or thyromegaly Heart: regular rate and rhythm Lungs: clear bilaterally Impression and Plan 1. Suspected Obstructive Sleep Apnea-Hypopnea Syndrome, as suggested by a history of loud and irregular snoring, gasping or choking in sleep, morning headache, frequent awakening during the night, unrefreshed sleep, and excessive daytime sleepiness. I reviewed with the patient that a narrow oropharynx and obesity are common predisposing factors for obstructive sleep apnea-hypopnea syndrome. I recommend proceeding to polysomnography to confirm the diagnosis and to assess severity. If the patient has significant sleep disordered breathing, a manual CPAP titration study will also be performed to find the optimal treatment pressure. I informed the patient of what the sleep studies involve and after some discussion, obtained agreement to proceed. The pathophysiology of obstructive sleep apnea-hypopnea syndrome was discussed with the patient and health risks of cardiovascular and cerebrovascular disease if not treated. AAS brochure for obstructive sleep apnea-hypopnea syndrome given and reviewed. Risks of drowsy driving discussed in detail and patient advised to avoid long distance driving and to tap puller at the first sign of drowsiness. Patient agreed to plan. * Schedule polysomnography +- manual CPAP titration study and return in 1-2 weeks after the study to discuss result and initiate therapy. * Avoid long distance driving or driving when feeling sleepy. * Avoid alcohol, sedative and muscle relaxant around bedtime. * Attempt to lose weight. * Review instructions provided by trained office staff on how to prepare for the sleep study. * Return for follow-up after sleep study completed. Counseling Topics: Weight loss health impact Visit Type: In Office Time Spent with Patient (minutes): 33 Provider Statement: I spent 100% of the Face to Face Visit with the patient with greater than 50% spent counseling the patient and coordination of care.
--- OUTSIDE RECORDS SUMMARY | 2020-07-05 01:40 | EXTERNAL MEDICAL SUMMARY RPT | Continuity of Care Document ---
:1950 Demographics Phone Unavailable Preferred Language Yoruba Marital Status Unknown Druze Affiliation Unknown Race Unknown Ethnic Group Unknown Author Organization [place] Address [address] [phone] Phone Care Team Providers Name Role Phone Dannhauer Unavailable Unavailable Dillan Unavailable Unavailable Registrar Unavailable Unavailable Problems date description facility 2020-04-22 00:00:00 Asthma, unspecified with (acute) [facility] Primary Care & exacerbation Ancillary Services [facility] 2020-04-22 00:00:00 Unspecified asthma with (acute) [facility] Primary Care & exacerbation Ancillary Services [facility] 2020-04-22 00:00:00 Wheezing Walk[facility]In Clinic [facility] Care & Ancillary Services [facility] 2020-04-22 00:00:00 Exacerbation of asthma [facility] Anc[facility] 2020-04-22 00:00:00 Never smoker [facility] Care & Ancillary Services [facility] 2020-04-22 15:30 MORBID (SEVERE) OBESITY WITH [facility] ALVEOLAR HYPOVENTILAT 2020-04-22 15:30 MORBID (SEVERE) OBESITY WITH [facility] ALVEOLAR HYPOVENTILATION 2020-04-22 15:30 MAJOR DEPRESSIVE DISORDER, [facility] SINGLE EPISODE, UNSPECI 2020-04-22 15:30 MAJOR DEPRESSIVE DISORDER, [facility] SINGLE EPISODE, UNSPECIFIED 2020-04-22 15:30 ESSENTIAL (PRIMARY) HYPERTENSION [facility] 2020-04-22 15:30 COR PULMONALE (CHRONIC) [facility] 2020-04-22 15:30 UNSPECIFIED DIASTOLIC [facility] (CONGESTIVE) HEART FAILURE 2020-04-22 15:30 PNEUMONIA, UNSPECIFIED ORGANISM [facility] 2020-04-22 15:30 CHR OBSTRUCTIVE PULMON DISEASE [facility] WITH (ACUTE) LOWER 2020-04-22 15:30 CHRONIC OBSTRUCTIVE PULMONARY [facility] DISEASE W (ACUTE) EX 2020-04-22 15:30 CHRONIC OBSTRUCTIVE PULMONARY [facility] DISEASE W (ACUTE) EXACERBATION 2020-04-22 15:30 GASTRO-ESOPHAGEAL REFLUX DISEASE [facility] WITHOUT ESOPHAGIT 2020-04-22 15:30 OTHER [facility] (CURRENT) DRUG [facility] THERAPY 2020-04-22 15:30 PRESENCE OF ARTIFICIAL KNEE [facility] JOINT, BILATERAL 2020-04-22 15:30 TYPE 2 DIABETES MELLITUS WITHOUT [facility] COMPLICATIONS 2020-04-22 15:30 HYPERLIPIDEMIA, UNSPECIFIED [facility] 2020-04-22 15:30 [facility] LE[facility]NDROME [facility]-04-22 15:30 HYPERTENSIVE HEART DISEASE WITH [facility] HEART FAILURE 2020-04-22 15:30 CHR OBSTRUCTIVE PULMON DISEASE [facility] WITH (ACUTE) LOWER RESP INFCT 2020-04-22 15:30 UNSPECIFIED ASTHMA, [facility] UNCOMPLICATED 2020-04-22 15:30 ACUTE RESPIRATORY FAILURE WITH [facility] HYPOXIA 2020-04-22 15:30 GASTRO-ESOPHAGEAL REFLUX DISEASE [facility] WITHOUT ESOPHAGITIS 2020-04-22 15:30 BODY MASS INDEX [BMI] 36.0-36.9, [facility] ADULT 2020-04-22 15:30 CMA OR LPN (CURRENT) USE OF ORAL [facility] HYPOGLYCEMIC DRUGS 2020-04-22 15:30 DEPENDENCE ON SUPPLEMENTAL [facility] OXYGEN Allergies date description facility AMOXICILLIN [facility] NO KNOWN ENVIRONMENTAL ALLERGIES [facility] NO KNOWN ALLERGIES [facility] AMOXIC[facility]IN [facility] BEE VENOM [facility] NO KNOWN ENVIRONMENTAL ALLERGIES [facility] bees [facility] transpore tape [facility] NO ALLERGY INFORMATION AVAILABLE [facility] NO KNOWN ALLERGIES [facility]AT [facility] CODEINE [facility] Procedures date description facility 2020-04-22 00:00:00 Nebulizer Treatment [facility] [place] date description facility 2020-04-22 00:00:00 Albuterol 0.083% 2.5mg/3ml [facility] Anc[facility] Services [facility] date description facility 2020-04-22 00:00:00 Walk[facility]In Clinic [facility] Care & Ancillary Services [place] date description facility 2020-04-22 00:00:00 Nebulizer Treatment [facility] [place] date description facility 2020-04-22 00:00:00 Albuterol 0.083% 2.5mg/3ml [facility] date description facility 2020-04-22 00:00:00 Walk[facility] [place] Results Social History date description facility 2020-04-22 00:00:00 Never smoker [facility] [place] Social History date description facility 2020-04-22 00:00:00 Never smoker [facility] [place] date description facility [id number]
== END 2020-06-30 13:37 | disposition home or self-care (01) ==
LOC: SC 13:36
PROVIDERS: ATTEND Nurse Practitioner Family
DX: G47.10 Hypersomnia, unspecified (principal); G47.8 Other sleep disorders; R51.9 Headache, unspecified; R06.83 Snoring; E66.01 Morbid (severe) obesity due to excess calories; Z68.42 Body mass index [BMI] 45.0-49.9, adult
CPT/HCPCS: 99203; G0463; 99212

== ENCOUNTER 2020-08-10 12:46 | Outpatient (CLI) | payer MEDICARE, BC ==
[2020-08-10 15:23] LABS: CALCIUM 9.4 mg/dL (8.5-10.3); CREATININE 0.9 mg/dL (0.4-1.0)
[2020-08-10 16:06] LABS: THYROID STIMULATING HORMONE 3.51 uIU/mL (0.34-5.60)
[2020-08-10 16:08] LABS: FREE T4 (FREE THYROXINE) 1.19 ng/dL (0.58-1.64)
== END 2020-08-10 12:47 | disposition home or self-care (01) ==
LOC: LAB.S 12:46
PROVIDERS: ATTEND Internal Medicine Cardiovascular Disease
DX: I50.9 Heart failure, unspecified (principal)
CPT/HCPCS: 36415; 80048; 83880; 84439; 84443

== ENCOUNTER 2020-08-15 10:52 | Outpatient (CLI) | payer MEDICARE, BC ==
[2020-08-15] MEDS ORDERED: REGADENOSON 0.4 MG/5 ML SYRINGE IVP ONE ×2 (12:38→13:37)
--- NOTE | 2020-08-15 13:41 | CARDIAC PROCEDURE NOTE ---
DATE OF SERVICE: 08/15/2020 Physician: Hiwot Robertson MD PROCEDURE: Lexiscan. SYMPTOMS: The patient experienced shortness of breath after injection. No chest pain. HEART RATE RESPONSE: 66-78. BLOOD PRESSURE RESPONSE: 141/67-162/70. ST SEGMENT RESPONSE: No ST elevations or depressions. ARRHYTHMIAS: There were multiple PACs and PVCs. IMPRESSION: No significant EKG changes. No chest pain. CONCLUSION: Await imaging studies. TD: 08/15/2020 13:31
--- NOTE | 2020-08-16 13:39 | Nuclear Medicine Report ---
PROCEDURE: Rest and pharmacological stress myocardial perfusion SPECT with gated imaging and ejection fraction INDICATIONS: CHEST PAIN,CHF LEXISCAN RADIOPHARMACEUTICAL: 21.5 mCi Tc-99m Myoview IV at rest and 18.4 mCi Tc-99m Myoview IV at peak exerc ise. [id number] was performed. TECHNIQUE: Radiopharmaceutical was injected at peak pharmacological stress test, and also at rest. SPECT images were obtained. SPECT myocardial perfusion images were displayed in short axis, horizont al long axis, and vertical long axis views. Gated images were reviewed using AutoQUANT software. COMPARISON: None available. CARDIAC STRESS: Patient could not exercise adequately, and was best demonstrated Lexiscan. Hemodynamic data: There is normal blood pressure and heart rate response to exercise stress. Patien alcides achieved 51% of maximum predicted heart rate at peak pharmacological stress Symptoms: Patient denied chest pain during exercise. FINDINGS: Raw data: There is good myocardial labeling by radiotracer. No significant motion artifacts. Lung- to-heart ratio is 0.3 (normal is less than 0.38 for tetrafosmin tracer). Left ventricle function: Gated images demonstrate normal left ventricle wall thickening. No segment al wall motion abnormality. No transient ischemic dilation; TID is 0.82 (normal less than 1.3). The left ventricle resting end-diastolic volume is 119 mL. Left ventricle stress ejection fraction is 7 0%; normal values are above 45%. Myocardial perfusion: There is moderately decreased radiotracer uptake within the anterior wall of t he left ventricle extending from mid heart to the apex, which demonstrates mildly increased perfusion on resting images. IMPRESSION: 1. Findings suggestive of a moderate-sized region of mild ischemia within the anterior wall of the le ft ventricle. 2. Normal left ventricular function. PQRS ATTESTATIONS: Measure 322 - Is this imaging test primarily performed on a low-risk surgery patient for preoperative evaluation within 30 days preceding their low-risk non-cardiac surgery? Low-risk surgery is defined as cardiac or myocardial infarction less than 1%, including (but not limited to) endoscopic pr ocedures, superficial procedures, cataract surgery, and excisional breast surgery: Answer: No Measure 323 - Is this imaging test performed primarily for the monitoring of an asymptomatic patient who had percutaneous coronary intervention on the visit date or within 2 years of the visit date? An swer: No Measure 324 - Is this imaging test performed primarily for the initial detection and risk assessment on an asymptomatic, low coronary heart disease patient? Low CHD risk definition = clinicians should consider the maximum number of available patient factors used to estimate risk based on [facility] (A TP III criteria), typically age, gender, diabetes, smoking status, and use of blood pressure medicati on, and integrate age appropriate estimates for missing elements, such as LDL or standard blood press ure. Answer: No Reviewed by: Deep Leal MD on 08/16/2020 1:38 PM PST Approved by: Deep Leal MD on 08/16/2020 1:38 PM PST Station ID: [id number]
== END 2020-08-15 10:53 | disposition home or self-care (01) ==
LOC: DI 10:52
PROVIDERS: ATTEND Internal Medicine
DX: R07.9 Chest pain, unspecified (principal); I50.9 Heart failure, unspecified; I49.3 Ventricular premature depolarization; I49.1 Atrial premature depolarization
CPT/HCPCS: 78452; 93017; A9500; J2785

== ENCOUNTER 2020-08-27 19:36 | Outpatient (CLI) | payer MEDICARE, BC | END 2020-08-27 19:37 | disposition home or self-care (01) | LOC: SC 19:36 | PROVIDERS: ATTEND Nurse Practitioner Family | DX: G47.33 Obstructive sleep apnea (adult) (pediatric) (principal); E66.9 Obesity, unspecified; Z68.42 Body mass index [BMI] 45.0-49.9, adult | CPT/HCPCS: 95810 ==

== ENCOUNTER 2020-09-05 13:32 | Outpatient (CLI) | payer MEDICARE, BC ==
--- NOTE | 2020-09-05 14:02 | SLEEP CARE CONSULTATION ---
Information from patient questionnaire entered by Sha Moura. I have reviewed and concur with the information entered by Sha Moura. This document represents the service I personally performed and the decisions made by , Rebecca Jay ARNP. History of Present Illness Service Date and Time: 09/05/2020 1332 Initial [place] Sleepiness Scale score: 8 (in 2020) Current [place] Sleepiness Scale score: 8 Additional HPI information: STACEY AVILA returns for follow up and results of the recently performed polysomnography. She was found to have mild obstructive sleep apnea with moderate hypoxemia. I explained the pathophysiology behind obstructive sleep apnea. We then spent quite a bit of time discussing different treatment options. For mild obstructive sleep apnea, surgery and oral appliance are alternatives to nasal CPAP therapy but in moderate or severe cases, nasal CPAP is the most effective and reliable treatment. After some discussion, the patient opted to go with the nasal CPAP therapy. Nasal autoCPAP set at 4-15 cmH20 will be ordered with rationale explained. A manual titration study will be ordered if unable to find optimal pressure with office adjustments. I explained how CPAP machine works with sample devices RespirAMDL Dreamstation and Watsi [id number] and what to expect when using the machine. Using CPAP every night in order to get used to it was emphasized. Patient advised to put CPAP mask on before getting into bed so as not to fall asleep without CPAP. To assist acclimation to CPAP use, it could also be used for a short time during day while reading or watching TV. The patient was instructed to call the CPAP supplier to discuss any mechanical problem that may occur. If the mask given is uncomfortable or is difficult to keep on through the night even with adjustment, contact the CPAP supplier as many will replace with another mask style if notified before 30 days. If snoring or perceives is not getting enough air or too much air from the machine, notify this office. [facility] patient education PAP tips reviewed and given to patient. Patient was cautioned about risks of drowsy driving until sleepiness symptoms resolve. Sleep Study - Results Type of Sleep Study: Polysomnography Prior sleep studies: No Polysomnography/Home Sleep Study results: IMPRESSION: The quality of the study is fair due to missing thermistor airflow. The patient had reduced sleep efficiency due to sleep onset insomnia and prolonged awakenings during the night. The sleep stage distribution as normal.. Respiratory monitoring showed mild obstructive sleep apnea-hypopnea (AHI = 7.9) associated with oxyhemoglobin desaturation and moderate hypoxia (rosa oxygen saturation of 79 %). The respiratory events occurred mainly during REM sleep. The patient only slept supine during this study (supine AHI = 8.3; non-supine = 0.00). Snore was light in intensity. There was no significant periodic leg movement of sleep. Cardiac rhythm was normal sinus rhythm with mild tachycardia (maximum heart rate of 112 beats per minute). No abnormal behavior (parasomnia) observed during the night. Allergies and Home Medications Home medication list reviewed: Yes (furosemide, potassium) Review of Systems Review of systems same as previous: Yes (no changes) Physical Exam Heart Rate: 104 O2 Saturation: 93 Height: 5 ft 8 in Weight: 291 lb Weight change since last visit: 10 Body Mass Index: 44.2 BMI Classification: Morbidly Obese Impression and Plan 1. Obstructive Sleep Apnea-Hypopnea Syndrome, mild, with lowest oxygen saturation of 79%. Obviously this is the cause of the patients symptoms of un refreshed sleep, and excessive daytime sleepiness. Positive pressure therapy could benefit RLS, hypertension, diabetes, acid reflux, depression and asthma. As mentioned above, the patient will be started on nasal autoCPAP therapy with pressure set at 4-15 cmH2O. A manual titration study will be completed if unable to find optimal treatment pressure with office adjustments. Compliance guidelines also reviewed. A copy of compliance guidelines will be given for reference at check out. * Nasal auto CPAP therapy, pressure at 4-15 cm H2O. * Attempt to lose weight. * Avoid alcohol consumption near bedtime. * Avoid supine sleep until using CPAP. * The patient is again cautioned about driving until sleepiness completely resolves. * Return one month after CPAP obtained. I will assess response to therapy and compliance at that time. Counseling Topics: Weight loss health impact Visit Type: In Office Time Spent with Patient (minutes): 20 Provider Statement: I spent 100% of the Face to Face Visit with the patient with greater than 50% spent counseling the patient and coordination of care.
== END 2020-09-05 13:33 | disposition home or self-care (01) ==
LOC: SC 13:32
PROVIDERS: ATTEND Nurse Practitioner Family
DX: G47.33 Obstructive sleep apnea (adult) (pediatric) (principal); E66.01 Morbid (severe) obesity due to excess calories; Z68.41 Body mass index [BMI] 40.0-44.9, adult
CPT/HCPCS: 99213; G0463; 99212

== ENCOUNTER 2020-10-24 09:15 | Outpatient (CLI) | payer MEDICARE, BC ==
[2020-10-24 14:20] LABS: HCT - HEMATOCRIT 46.2 % (37.0-47.0); HGB - HEMOGLOBIN 14.3 g/dL (12.0-16.0); MEAN CORPUSCULAR HEMOGLOBIN 29.5 pg (27.0-31.0); MEAN CORPUSCULAR VOLUME 95.5 fL (81.0-99.0); MEAN PLATELET VOLUME 11.1 fL (7.9-10.8); RED BLOOD COUNT 4.84 10^6/uL (4.20-5.40); RED CELL DISTRIBUTION WIDTH 13.7 % (12.0-15.0); WHITE BLOOD COUNT 4.1 x10^3/uL (4.8-10.8)
[2020-10-24 14:49] LABS: BUN - BLOOD UREA NITROGEN 50 mg/dL (6-20); CALCIUM 9.4 mg/dL (8.5-10.3); CARBON DIOXIDE - CO2 34 mmol/L (21-32); CHLORIDE 99 mmol/L (101-111); CHOL/HDL RATIO 4.3 (<4.4); CHOLESTEROL 183 mg/dL; CREATININE 1.2 mg/dL (0.4-1.0); GFR - MDRD 44 (>89); GLUCOSE 143 mg/dL (70-100); HDL CHOLESTEROL 43 mg/dL; LDL CHOLESTEROL,CALCULATED 111 mg/dL; LDL/HDL RATIO 2.6 (<4.4); POTASSIUM 4.3 mmol/L (3.5-5.0); SODIUM 144 mmol/L (135-145); TRIGLYCERIDES 143 mg/dL; VLDL CHOLESTEROL 29 mg/dL
== END 2020-10-24 09:16 | disposition home or self-care (01) ==
LOC: LAB.S 09:15
PROVIDERS: ATTEND Internal Medicine Cardiovascular Disease
DX: I50.32 Chronic diastolic (congestive) heart failure (principal); I25.10 Atherosclerotic heart disease of native coronary artery without angina pectoris
CPT/HCPCS: 36415; 80048; 80061; 83721; 85027

== ENCOUNTER 2020-11-23 12:53 | Outpatient (CLI) | payer MEDICARE, BC ==
--- NOTE | 2020-11-23 13:26 | SLEEP CARE CONSULTATION ---
Information from patient questionnaire entered by Catherine Romo. I have reviewed and concur with the information entered by Catherine Romo. This document represents the service I personally performed and the decisions made by me, Rebecca Jay ARNP. History of Present Illness Service Date and Time: 11/23/2020 1253 Previous diagnosis: Mild, Obstructive Sleep Apnea-Hypopnea Syndrome AHI: 7.9 (in 2020) Reason for follow up: first compliance Equipment type: CPAP Equipment obtained from: [employer] (got initial supplies) Mask style: Full face Mask brand: [employer]med Backup mask available: No (will keep old mask when replaced) Last cushion change: 1 month Prior sleep studies: Yes Year and Where: 2020 - [facility] Type of Sleep Study: Polysomnography HPI additional information: STACEY AVILA was diagnosed to have mild, AHI 7.9, obstructive sleep apnea- hypopnea syndrome and returned today for CPAP therapy first compliance follow- up. CPAP Compliance Data - Data Reviewed with Patient Average duration of nightly device use: 5 hr 47 min Compliance rate %: 83 Current pressure setting (cmH2O): 4-15 (median 4.0, avg 5.3, max 6.8) Humidity settin Average residual AHI: 1.1 Central apnea: 0.0 Obstructive apnea: 0.5 Subjective Patient concerns: reports: mask discomfort (sometimes it is uncomfortable around the edges of the mask), condensation in mask/hose (just once with overfilling the water chamber), dry mouth, nose, throat (turned up the humidity and not tolerating the heated air as well), other (blows hot air in my face). denies: aerophagia, air blowing in eyes, mask leak noise, nasal congestion, epistaxis Observed to snore while using device: No Current pressure setting perceived as: comfortable On therapy, patient: reports: awakening more refreshed (at first). denies: sleeping better, being more awake and alert during the day, more rested overall, drowsiness while driving Initial [place] Sleepiness Scale score: 8 (in 2020) Current [place] Sleepiness Scale score: 7 Allergies and Home Medications Home medication list reviewed: Yes (no changes) Review of Systems Review of systems same as previous: Yes (no changes) Physical Exam Heart Rate: 77 O2 Saturation: 96 Height: 5 ft 8 in Weight: 298 lb Body Mass Index: 45.3 BMI Classification: Morbidly Obese Impression and Plan 1. Obstructive Sleep Apnea-Hypopnea Syndrome, mild, with good treatment compliance and good apnea control. On CPAP therapy, the patient has better sleep quality and is more rested overall. She was given a choice of a full face mask and another nasal mask with a chin strap. She chose the full face mask but she thinks she would like the nasal cushion type mask better. I will write for a mask refitting. She was liking the machine except for getting very bad dry mouth. She went in on the machine and turned on the humidity to 3 and now has lots of hot air blowing on her face and this is very uncomfortable for her. I discussed with her how to use the humidity chamber without heat and adjusted her machine back to having the heated humidifier off. I will adjust her pressure to reflect the pressures she has been using on average and have her follow up in 1- 2 months. Patient's apnea severity and rationale for treatment to reduce apnea, improve sleep quality and reduce cardiovascular and cerebrovascular events was reviewed. I also reviewed the benefit of consistent device use of CPAP for hypertension, diabetes, gastric reflux, depression, RLS and asthma. * Change auto CPAP pressure to 5-7 cmH2O * Notify me if snoring with mask or feeling that the pressure is too much or too little * Attempt to lose weight * Call this office if any problems using CPAP * Return for follow up in 1-2 months, or sooner if concerns arise Counseling Topics: Spare mask, Weight loss health impact Visit Type: In Office Time Spent with Patient (minutes): 24 Provider Statement: I spent 100% of the Face to Face Visit with the patient with greater than 50% spent counseling the patient and coordination of care.
== END 2020-11-23 12:54 | disposition home or self-care (01) ==
LOC: SC 12:53
PROVIDERS: ATTEND Nurse Practitioner Family
DX: G47.33 Obstructive sleep apnea (adult) (pediatric) (principal); E66.01 Morbid (severe) obesity due to excess calories; Z68.42 Body mass index [BMI] 45.0-49.9, adult
CPT/HCPCS: 99213; G0463; 99212

== ENCOUNTER 2021-01-03 12:51 | Outpatient (CLI) | payer MEDICARE, BC ==
--- NOTE | 2021-01-03 13:14 | SLEEP CARE CONSULTATION ---
Information from patient questionnaire entered by Catherine Romo. I have reviewed and concur with the information entered by Catherine Romo. This document represents the service I personally performed and the decisions made by , Rebecca Jay ARNP. History of Present Illness Service Date and Time: 01/03/2021 1251 Previous diagnosis: Mild, Obstructive Sleep Apnea-Hypopnea Syndrome AHI: 7.9 (in 2020) Reason for follow up: other (6 week with pressure change) Equipment type: [facility] Mask style: Nasal Mask brand: [employer] ([place]) Backup mask available: Yes (coming in the mail; will keep old mask when replaced) Last cushion change: 3 weeks Prior sleep studies: Yes Year and Where: 2020 - [facility] Type of Sleep Study: Polysomnography HPI additional information: STACEY AVILA was diagnosed to have mild, AHI 7.9, obstructive sleep apnea- hypopnea syndrome and returned today for CPAP therapy 6 week pressure change follow-up. CPAP Compliance Data - Data Reviewed with Patient Average duration of nightly device use: 7 hr 59 min Compliance rate %: 100 Current pressure setting (cmH2O): 5-7 Humidity settin Average residual AHI: 2.4 Subjective Missed days of use due to: reports: mask issues Patient concerns: reports: nasal congestion (turned up the humidity and this resolved), dry mouth, nose, throat (a little), other (snore while using device). denies: aerophagia, mask discomfort, air blowing in eyes, mask leak noise, condensation in mask/hose, epistaxis Observed to snore while using device: Yes (hears when laying down to go to sleep, at first) Current pressure setting perceived as: comfortable On therapy, patient: reports: sleeping better, awakening more refreshed, being more awake and alert during the day, more rested overall. denies: drowsiness while driving Initial [place] Sleepiness Scale score: 8 (in 2020) Current [place] Sleepiness Scale score: 7 Allergies and Home Medications Home medication list reviewed: Yes (no changes) Review of Systems Review of systems same as previous: Yes (no changes) Physical Exam Heart Rate: 74 O2 Saturation: 93 Height: 5 ft 8 in Weight: 296 lb Body Mass Index: 45.0 BMI Classification: Morbidly Obese Impression and Plan 1. Obstructive Sleep Apnea-Hypopnea Syndrome, mild, with excellent treatment compliance and good apnea control. On CPAP therapy, the patient has better sleep quality and is more rested overall. Patient changed to a [employer] [place] nasal mask and states this has made a big difference. She states it fits well, is comfortable and she is able to sleep longer now. She is not waking up as much at night to go to the bathroom. She is feeling more rested and is much more satisfied with her CPAP treatment. Patient states she tries to watch what she eats, cut back on portions to try to lose weight. I advised her to concentrate on getting good nutrition rather than decrease calories and she voiced understanding. Patient's apnea severity and rationale for treatment to reduce apnea, improve sleep quality and reduce cardiovascular and cerebrovascular events was reviewed. I also reviewed the benefit of consistent device use of CPAP for hypertension, diabetes, gastric reflux, depression and RLS. * Continue autoCPAP pressure at 5-7 cmH2O * Notify me if snoring with mask or feeling that the pressure is too much or too little * Attempt to lose weight * Call this office if any problems using CPAP * Return for follow up in 3 months, or sooner if concerns arise Counseling Topics: Spare mask, Weight loss health impact Visit Type: In Office Time Spent with Patient (minutes): 13 Provider Statement: I spent 100% of the Face to Face Visit with the patient with greater than 50% spent counseling the patient and coordination of care.
== END 2021-01-03 12:52 | disposition home or self-care (01) ==
LOC: SC 12:51
PROVIDERS: ATTEND Nurse Practitioner Family
DX: G47.33 Obstructive sleep apnea (adult) (pediatric) (principal); E66.01 Morbid (severe) obesity due to excess calories; Z68.42 Body mass index [BMI] 45.0-49.9, adult
CPT/HCPCS: 99212; G0463

== ENCOUNTER 2021-04-06 12:39 | Outpatient (CLI) | payer MEDICARE, BC ==
[2021-04-06 13:18] VITALS: BP 142/90
--- NOTE | 2021-04-06 13:18 | SLEEP CARE CONSULTATION ---
Information from patient questionnaire entered by Margie Fine. I have reviewed and concur with the information entered by Margie Fine. This document represents the service I personally performed and the decisions made by , Rebecca Jay ARNP. History of Present Illness Service Date and Time: 04/06/2021 1239 Previous diagnosis: Mild, Obstructive Sleep Apnea-Hypopnea Syndrome AHI: 7.9 Reason for follow up: three month Equipment type: CPAP Equipment obtained from: [employer] (getting supplies as needed) Mask style: Nasal Backup mask available: No (may have one, will keep old mask when replaced) Last cushion change: 4 months Prior sleep studies: Yes Year and Where: 2020 - [facility] Type of Sleep Study: Polysomnography HPI additional information: STACEY AVILA was diagnosed to have mild, AHI 7.9, obstructive sleep apnea- hypopnea syndrome and returned today for CPAP therapy three month follow-up. Sleep Study - Results Type of Sleep Study: Polysomnography Prior sleep studies: Yes Year and Where: 2020 - [facility] CPAP Compliance Data - Data Reviewed with Patient Average duration of nightly device use: 8 hours 53 minutes Compliance rate %: 100 Current pressure setting (cmH2O): 5-7 Average residual AHI: 2.5 Central apnea: 0 Obstructive apnea: 1.8 Hypopnea: .5 Subjective Patient concerns: reports: dry mouth, nose, throat (occasional dry throat). denies: aerophagia, mask discomfort, air blowing in eyes, mask leak noise, condensation in mask/hose, nasal congestion, epistaxis, other Observed to snore while using device: No Current pressure setting perceived as: comfortable On therapy, patient: reports: other (sleeping for longer periods at night but getting up d/t RLS at night - affecting sleep). denies: drowsiness while dri ving Initial [place] Sleepiness Scale score: 8 (in 2020) Current [place] Sleepiness Scale score: 8 Allergies and Home Medications Home medication list reviewed: Yes (no changes) Review of Systems Review of systems same as previous: Yes (no changes) Physical Exam Blood Pressure: 142/90 (left arm) Cuff size: long Heart Rate: 87 O2 Saturation: 90 Height: 5 ft 9 in Weight: 273 lb Weight change since last visit: 23 lb loss----intentional Body Mass Index: 40.3 BMI Classification: Morbidly Obese Impression and Plan 1. Obstructive Sleep Apnea-Hypopnea Syndrome, mild, with excellent treatment compliance and good apnea control. Patient states she has been having lots of trouble with her restless legs at night which is getting her out of bed to walk. This affects her sleep and she has not really been feeling like she is sleeping better or feeling more rested overall. Patient's apnea severity and rationale for treatment to reduce apnea, improve sleep quality and reduce cardiovascular and cerebrovascular events was reviewed. I also reviewed the benefit of consistent device use of CPAP for hypertension, diabetes, gastric reflux, depression and RLS. 2. Obesity, unspecified. Patient has lost weight. Currently patients BMI is 40.3. Obesity increases the risk of apnea, CPAP pressure requirements and overall health risks especially cardiovascular and diabetes. Patient has been controlling portions and trying to eat more healthy food which is working and she has lost over 20 pounds since her last visit. Patient is advised to continue to try to lose weight. The patient's CPAP pressure range should accommodate some weight loss. Symptoms to report for additional pressure adjustment discussed. * Continue auto CPAP pressure at 5-7 cmH2O * Notify me if snoring with mask or feeling that the pressure is too much or too little * Attempt to lose weight * Call this office if any problems using CPAP * Return for follow up in 6 months, or sooner if concerns arise Counseling Topics: Spare mask, Weight loss health impact Visit Type: In Office Time Spent with Patient (minutes): 18 Provider Statement: I spent 100% of the Face to Face Visit with the patient with greater than 50% spent counseling the patient and coordination of care.
== END 2021-04-06 12:40 | disposition home or self-care (01) ==
LOC: SC 12:39
PROVIDERS: ATTEND Nurse Practitioner Family
DX: G47.33 Obstructive sleep apnea (adult) (pediatric) (principal); G25.81 Restless legs syndrome; E66.9 Obesity, unspecified; Z68.41 Body mass index [BMI] 40.0-44.9, adult
CPT/HCPCS: 99212; G0463

== ENCOUNTER 2021-10-18 13:20 | Outpatient (CLI) | payer MEDICARE, BC | END 2021-10-18 13:21 | disposition home or self-care (01) | LOC: RT 13:20 | PROVIDERS: ATTEND Internal Medicine Cardiovascular Disease | DX: I10 Essential (primary) hypertension (principal); R06.02 Shortness of breath | CPT/HCPCS: 93005 ==

== ENCOUNTER 2021-12-17 14:07 | Outpatient (CLI) | payer MEDICARE, BC ==
[2021-12-17 19:54] LABS: CALCIUM 8.9 mg/dL (8.5-10.3); CREATININE 1.8 mg/dL (0.4-1.0); POTASSIUM 4.5 mmol/L (3.5-5.0)
== END 2021-12-17 14:08 | disposition home or self-care (01) ==
LOC: LAB.S 14:07
PROVIDERS: ATTEND Internal Medicine Cardiovascular Disease
DX: I50.31 Acute diastolic (congestive) heart failure (principal)
CPT/HCPCS: 36415; 80048

== ENCOUNTER 2022-02-11 10:48 | Emergency (ER) | payer MEDICARE, BC ==
[2022-02-11] MEDS ORDERED: IPRATROPIUM/ALBUTEROL 3 ML NEB INH STA (11:13)
[2022-02-11] MEDS ORDERED: DEXAMETHASONE 10 MG/ML VIAL IV STA (11:13)
[2022-02-11 11:57] LABS: BASOPHILS % (AUTO) 0.4 %; EOSINOPHILS % (AUTO) 0.1 %; HCT - HEMATOCRIT 36.8 % (37.0-47.0); HGB - HEMOGLOBIN 11.1 g/dL (12.0-16.0); LYMPHOCYTES # (AUTO) 0.4 10^3/uL (1.5-3.5); LYMPHOCYTES % (AUTO) 5.5 %; MEAN CORPUSCULAR HEMOGLOBIN 28.2 pg (27.0-31.0); MEAN CORPUSCULAR HGB CONC 30.2 g/dL (32.0-36.0); MEAN CORPUSCULAR VOLUME 93.6 fL (81.0-99.0); MONOCYTES # (AUTO) 0.3 10^3/uL (0.0-1.0); MONOCYTES % (AUTO) 3.6 %; NEUTROPHILS # (AUTO) 6.6 10^3/uL (1.5-6.6); NEUTROPHILS % (AUTO) 88.9 %; NRBC ABSOLUTE COUNT (AUTO) 0.03 x10^3/uL; NUCLEATED RED BLOOD CELLS AUTO 0.4 /100WBC; PLT - PLATELET COUNT 174 10^3/uL (130-450); RED BLOOD COUNT 3.93 10^6/uL (4.20-5.40); RED CELL DISTRIBUTION WIDTH 14.9 % (12.0-15.0); WHITE BLOOD COUNT 7.4 x10^3/uL (4.8-10.8)
--- NOTE | 2022-02-11 12:04 | XRAY Report ---
PROCEDURE: Chest 1 View X-Ray INDICATIONS: chest pain TECHNIQUE: One view of the chest was acquired. COMPARISON: Chest x-ray 02/10/2022 FINDINGS: Surgical changes and devices: None. Lungs and pleura: There is increased appearance of by basilar/retrocardiac opacities. Increased pulm onary vascularity is present. There is blunting of the costophrenic angles bilaterally. Mediastinum: Mediastinal contours appear normal. Heart size is enlarged. Bones and chest wall: No suspicious bony lesions. Overlying soft tissues appear unremarkable. IMPRESSION: Increased appearance of retrocardiac as well as bibasilar opacities with increased vascularity. Overa ll appearance may be consistent with progressive edema. However, developing underlying areas of pneum onia and/or atelectasis cannot be excluded. Costophrenic angle blunting is present likely related to trace effusions. Reviewed by: Kellie Harper MD on 02/11/2022 12:02 PM PDT Approved by: Kellie Harper MD on 02/11/2022 12:02 PM PDT Station ID: [id number]
[2022-02-11 12:11] LABS: ALBUMIN 3.9 g/dL (3.2-5.5); ALBUMIN/GLOBULIN RATIO 1.1 (1.0-2.2); BILIRUBIN,TOTAL 0.8 mg/dL (0.2-1.0); CALCIUM 9.4 mg/dL (8.5-10.3); CREATININE 1.9 mg/dL (0.4-1.0); POTASSIUM 5.3 mmol/L (3.5-5.0); TOTAL PROTEIN 7.6 g/dL (6.7-8.2)
[2022-02-11 14:07] LABS: ABG BASE EXCESS 6.3 mmol/L (-2.0-3.0); ABG HCO3 33.8 mmol/L (22.0-26.0); ABG PH 7.34 (7.35-7.45); ABG TCO2 35.7 MMOL/L (21.0-29.0); ALLEN TEST POSITIVE
[2022-02-11 14:11] LABS: ABG PCO2 64 mmHg (34-45)
[2022-02-11 14:12] LABS: ABG OXYGEN SATURATION 86 % (94-98); ABG PO2 49 mmHg (80-100)
[2022-02-11] MEDS ORDERED: FUROSEMIDE 40 MG/4 ML VIAL IVP STA (14:25)
[2022-02-11] MEDS ORDERED: LORazepam 2 MG/ML VIAL IVP STA (16:22)
--- NOTE | 2022-02-11 18:14 | ED Physician Documentation ---
PD HPI DYSPNEA - Stated complaint Stated Complaint: SOA - Chief complaint Chief Complaint: Resp - History obtained from History obtained from: Patient - Additional information Additional information: The patient comes to the emergency department chief complaint of shortness of breath. He has a history of both CHF and COPD and has had worsening dyspnea over the last few days. She was seen here 2 days ago [facility] have a BNP of just over 200 withOut significant findings on x-ray. She states that she had initially felt better after breathing treatments but that today, she did not seem to help. She has noticed increasing swelling in her lower extremities. She states she did not sleep well last night. No chest pain. No fevers or chills. The patient is normally on 2 L of oxygen per nasal cannula [id number]. Review of Systems Ten Systems: 10 systems reviewed and negative Constitutional: reports: Reviewed and negative Eyes: reports: Reviewed and negative Ears: reports: Reviewed and negative Nose: reports: Reviewed and negative Throat: reports: Reviewed and negative Cardiac: reports: Reviewed and negative Respiratory: reports: Dyspnea GI: reports: Reviewed and negative : reports: Reviewed and negative Skin: reports: Reviewed and negative Musculoskeletal: reports: Reviewed and negative Neurologic: reports: Reviewed and negative Psychiatric: reports: Reviewed and negative Endocrine: reports: Reviewed and negative Immunocompromised: reports: Reviewed and negative PD PAST MEDICAL HISTORY - Past Medical History Cardiovascular: Hypertension, High cholesterol Respiratory: Asthma, Other (Chronic Bronchitis) Endocrine/Autoimmune: Type 2 diabetes GI: GERD : None HEENT: None Psych: Depression, Other (Restless leg syndrome) Musculoskeletal: None Derm: None - Past Surgical History Past Surgical History: Yes General: Cholecystectomy Ortho: Knee replacement (bilaterally) /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: Hysterectomy - Present Medications Home Medications: Ambulatory Orders Medication Instructions Recorded Confirmed Amlodipine Besylate [Norvasc] 10 mg PO DAILY 04/22/20 04/22/20 Enalapril Maleate [Vasotec] 20 mg PO BID 04/22/20 04/23/20 Metformin HCl [Glucophage] 1,000 mg PO BID 04/22/20 04/22/20 Sertraline HCl 50 mg PO DAILY 04/22/20 04/22/20 Simvastatin [Zocor] 20 mg PO QPM 04/22/20 04/22/20 carvediloL [Coreg] 12.5 mg PO BID 04/22/20 04/22/20 glipiZIDE [Glucotrol] 5 mg PO BID 04/22/20 04/22/20 Cranberry 500 mg PO BID 04/23/20 04/23/20 Docusate Sodium 250Mg Capsule 500 mg PO DAILY 04/23/20 04/23/20 [Colace 250Mg Capsule] Ibuprofen [Advil] 400 mg PO BID 04/23/20 04/23/20 Multivitamin [Theragran] 1 each PO DAILY 04/23/20 04/23/20 Pramipexole Di-HCl [Mirapex] 0.375 mg PO QPM 04/23/20 04/23/20 Furosemide [Lasix] 20 mg PO Q48H #15 tablet 04/25/20 Lactobacillus Rhamnosus GG 1 cap PO DAILY #4 capsule 04/25/20 [Culturelle] levoFLOXacin [Levaquin] 750 mg PO DAILY #4 tablet 04/25/20 Albuterol Sulf [Ventolin Hfa 1 - 2 puffs INH Q4HR PRN #1 each 02/10/22 Inhaler] Fluticasone/Salmeterol [Advair 1 each IH BID #1 each 02/10/22 250-50 Diskus] predniSONE [Deltasone] 10 mg PO [id number] #[id number] tab 02/10/22 - Allergies Allergies/Adverse Reactions: Allergies Allergy/AdvReac Type Severity Reaction Status Date / Time Penicillins Allergy Hives Verified 02/01/14 12:29 bees Allergy Edema Uncoded 02/08/14 14:55 transpore tape Allergy Itching Uncoded 02/08/14 14:55 - Social History Does the pt smoke?: No Smoking Status: Never smoker Does the pt drink ETOH?: Yes Does the pt have substance abuse?: No - Immunizations Immunizations are current?: Yes - POLST Patient has POLST: No PD ED PE NORMAL - Vitals Vital signs reviewed: Yes - General General: Alert and oriented X 3, Well developed/nourished, Other (Moderate respiratory distress) - HEENT HEENT: Atraumatic, PERRL, EOMI, Moist mucous membranes - Neck Neck: Supple, no meningeal sign - Cardiac Cardiac: RRR, No murmur - Respiratory Respiratory: Other (Decreased air movement bilaterally, fine bilateral wheezes. The patient smiles and speaks in phrases, but has labored respirations.) - Abdomen Abdomen: Soft, Non tender, Non distended - Derm Derm: Warm and dry - Extremities Extremities: No deformity, Other (2+ pitting edema bilateral lower extremities) - Neuro Neuro: Alert and oriented X 3, tape machine tailer 2-12 intact, Normal speech - Psych Psych: Normal mood, Normal affect Results - Vitals Vitals: Vital Signs - 24 hr 02/11/22 02/11/22 02/11/22 10:57 11:00 11:36 Temperature 37.1 C Heart Rate 102 H 91 84 Respiratory 28 H 28 H 24 Rate Blood Pressure 166/86 H 147/99 H O2 Saturation 86 L 97 02/11/22 02/11/22 02/11/22 12:02 12:18 12:30 Temperature Heart Rate 87 76 73 Respiratory 30 H Rate Blood Pressure 160/76 H O2 Saturation 84 L 92 02/11/22 02/11/22 02/11/22 13:00 13:30 14:00 Temperature Heart Rate 76 75 104 H Respiratory 28 H 28 H 28 H Rate Blood Pressure 169/67 H 165/96 H 134/104 H O2 Saturation 95 92 94 02/11/22 02/11/22 02/11/22 14:10 14:30 15:00 Temperature Heart Rate 65 101 H 84 Respiratory 32 H 30 H Rate Blood Pressure 160/85 H O2 Saturation 95 95 02/11/22 02/11/22 02/11/22 15:30 15:50 16:00 Temperature Heart Rate 80 75 79 Respiratory 28 H 30 H Rate Blood Pressure 155/65 H O2 Saturation 98 98 02/11/22 16:44 Temperature 37.4 C Heart Rate 107 H Respiratory 28 H Rate Blood Pressure 153/85 H O2 Saturation 94 Oxygen O2 Source Room air Oxygen Flow Rate 4 - Labs Labs: Laboratory Tests 02/11/22 02/11/22 02/11/22 11:45 11:45 11:45 WBC 7.4 RBC 3.93 L Hgb 11.1 L Hct 36.8 L MCV 93.6 MCH 28.2 MCHC 30.2 L RDW 14.9 Plt Count 174 MPV 10.0 Neut # (Auto) 6.6 Lymph # (Auto) 0.4 L [place] # (Auto) 0.3 Eos # (Auto) 0.0 Baso # (Auto) 0.0 Absolute Nucleated RBC 0.03 Nucleated RBC % 0.4 Bld Gas Analysis Time Sample Site ABG pH ABG pCO2 ABG pO2 ABG HCO3 ABG Total CO2 ABG O2 Saturation ABG Base Excess Keagan Test O2 Delivery Device FiO2 EPAP IPAP Sodium 137 Potassium 5.3 H Chloride 95 L Carbon Dioxide 36 H Anion Gap 6.0 BUN 45 H Creatinine 1.9 H Estimated GFR (MDRD) 26 L Glucose 169 H Calcium 9.4 Total Bilirubin 0.8 AST 21 ALT 18 Alkaline Phosphatase 68 B-Natriuretic Peptide 557 H Total Protein 7.6 Albumin 3.9 Globulin 3.7 Albumin/Globulin Ratio 1.1 Lipase 30 02/11/22 13:49 WBC RBC Hgb Hct MCV MCH MCHC RDW Plt Count MPV Neut # (Auto) Lymph # (Auto) [place] # (Auto) Eos # (Auto) Baso # (Auto) Absolute Nucleated RBC Nucleated RBC % Bld Gas Analysis Time 1405 Sample Site LEFT RADIAL ABG pH 7.34 L ABG pCO2 64 H* ABG pO2 49 L* ABG HCO3 33.8 H ABG Total CO2 35.7 H ABG O2 Saturation 86 L* ABG Base Excess 6.3 H Keagan Test POSITIVE O2 Delivery Device BiPAP SPONT FiO2 35.00 EPAP 5 IPAP 12 Sodium Potassium Chloride Carbon Dioxide Anion Gap BUN Creatinine Estimated GFR (MDRD) Glucose Calcium Total Bilirubin AST ALT Alkaline Phosphatase B-Natriuretic Peptide Total Protein Albumin Globulin Albumin/Globulin Ratio Lipase - Rads (name of study) Chest x-ray Radiology: Final report received, EMP read indepedently, See rad report (Interval worsening of pulmonary edema Bilaterally) PD MEDICAL DECISION MAKING - ED course Complexity details: reviewed old records, reviewed results, re-evaluated patient, considered differential, d/w patient (Had with the section of the little grabber not) ED course: The patient was treated with a DuoNeb and IV Decadron initially. Chest x-ray was performed and showed pulmonary edema and so 80 mg of Lasix was administered IV. The patient is quite anxious, as was her family and patient ultimately was offered BiPAP by the respiratory therapist though I did not feel patient was likely to need this for a long period. However, given the patient's anxiety in combination with her underlying condition, felt that it may be beneficial for her to have it for short period of time until the Lasix started kicking in. The patient did begin to urinate frequently and put out large amount of urine, though this was mixed with toilet paper and nursing staff reported they could not measure it exactly. Patient did begin to report improvement of her symptoms. She was ultimately removed from BiPAP and while there was some degree of anxiety, this had been improved after Ativan. The patient was initially placed on 3 L of oxygen per nasal cannula which is 1 L higher than she normally takes at home, and was found to have oxygen saturations of 99 to 100%. At this point in time, the patient's lowest oxygen saturation in the emergency department has been 92% on her baseline level of level of oxygen and she is unlikely to meet admission criteria at this time. We will continue to diurese her in the emergency department and reconsider if she worsens. If she improves significantly, she may be a candidate for discharge home. She is signed out to the oncoming emergency physician at change of shift, pending reevaluation and med effect.
[2022-02-11 19:03] VITALS: BP 167/76
== END 2022-02-11 18:55 | disposition home or self-care (01) ==
LOC: EDBD → EDUNIT# → ED 10:48
DX: I11.0 Hypertensive heart disease with heart failure (principal); I50.9 Heart failure, unspecified; E11.9 Type 2 diabetes mellitus without complications; Z79.84 Long term (current) use of oral hypoglycemic drugs
CPT/HCPCS: 36415; 36600; 71045; 80053; 82803; 83690; 83880; 85025; 94640; 94660; 96374; 96375; 99282; 99285; J2060

== ENCOUNTER 2022-02-26 14:16 | Outpatient (CLI) | payer MEDICARE, BC ==
[2022-02-26 15:58] LABS: CALCIUM 9.3 mg/dL (8.5-10.3); CREATININE 1.3 mg/dL (0.4-1.0); POTASSIUM 4.2 mmol/L (3.5-5.0)
[2022-02-26 20:02] LABS: ESTIMATED AVERAGE GLUCOSE 120 mg/dL (70-100); HEMOGLOBIN A1c% 5.8 % (4.27-6.07)
== END 2022-02-26 23:59 | disposition home or self-care (01) ==
LOC: LAB.R 14:16
PROVIDERS: ATTEND Internal Medicine
DX: E11.9 Type 2 diabetes mellitus without complications (principal); Z79.899 Other long term (current) drug therapy
CPT/HCPCS: 80048; 82607; 83036

== ENCOUNTER 2022-03-04 13:19 | Outpatient (CLI) | payer MEDICARE, BC ==
[2022-03-04] MEDS: ALBUTEROL 1 PUFF INH STA (16:37)
== END 2022-03-04 13:20 | disposition home or self-care (01) ==
LOC: RT 13:19
PROVIDERS: ATTEND Internal Medicine
DX: J44.9 Chronic obstructive pulmonary disease, unspecified (principal); J81.1 Chronic pulmonary edema
CPT/HCPCS: 94060

== ENCOUNTER 2022-04-04 11:35 | Outpatient (CLI) | payer MEDICARE, BC ==
[2022-04-04 11:54] LABS: BASOPHILS % (AUTO) 0.5 %; EOSINOPHILS # (AUTO) 0.4 10^3/uL (0.0-0.7); EOSINOPHILS % (AUTO) 6.7 %; HCT - HEMATOCRIT 21.3 % (37.0-47.0); LYMPHOCYTES # (AUTO) 0.8 10^3/uL (1.5-3.5); LYMPHOCYTES % (AUTO) 14.7 %; MEAN CORPUSCULAR HEMOGLOBIN 25.1 pg (27.0-31.0); MEAN CORPUSCULAR HGB CONC 28.2 g/dL (32.0-36.0); MEAN CORPUSCULAR VOLUME 89.1 fL (81.0-99.0); MEAN PLATELET VOLUME 8.9 fL (7.9-10.8); MONOCYTES # (AUTO) 0.4 10^3/uL (0.0-1.0); MONOCYTES % (AUTO) 7.9 %; NEUTROPHILS # (AUTO) 3.9 10^3/uL (1.5-6.6); NEUTROPHILS % (AUTO) 69.8 %; NRBC ABSOLUTE COUNT (AUTO) 0.03 x10^3/uL; NUCLEATED RED BLOOD CELLS AUTO 0.5 /100WBC; PLT - PLATELET COUNT 293 10^3/uL (130-450); RED BLOOD COUNT 2.39 10^6/uL (4.20-5.40); RED CELL DISTRIBUTION WIDTH 18.5 % (12.0-15.0); WHITE BLOOD COUNT 5.6 x10^3/uL (4.8-10.8)
[2022-04-04 12:04] LABS: ALBUMIN 3.3 g/dL (3.2-5.5); ALBUMIN/GLOBULIN RATIO 0.9 (1.0-2.2); BILIRUBIN,TOTAL 0.5 mg/dL (0.2-1.0); CALCIUM 9.2 mg/dL (8.5-10.3); CREATININE 1.2 mg/dL (0.4-1.0); POTASSIUM 4.7 mmol/L (3.5-5.0); TOTAL PROTEIN 6.9 g/dL (6.7-8.2)
== END 2022-04-04 11:36 | disposition home or self-care (01) ==
LOC: LAB 11:35
PROVIDERS: ATTEND Internal Medicine
DX: I95.9 Hypotension, unspecified (principal); R23.1 Pallor; R00.2 Palpitations; Z79.899 Other long term (current) drug therapy
CPT/HCPCS: 36415; 80053; 85025

== ENCOUNTER 2022-04-11 14:20 | Outpatient (CLI) | payer MEDICARE, BC ==
[2022-04-11 16:02] LABS: BASOPHILS % (AUTO) 0.6 %; EOSINOPHILS # (AUTO) 0.2 10^3/uL (0.0-0.7); EOSINOPHILS % (AUTO) 3.5 %; HCT - HEMATOCRIT 25.9 % (37.0-47.0); HGB - HEMOGLOBIN 7.5 g/dL (12.0-16.0); LYMPHOCYTES # (AUTO) 0.8 10^3/uL (1.5-3.5); LYMPHOCYTES % (AUTO) 14.9 %; MEAN CORPUSCULAR HEMOGLOBIN 24.6 pg (27.0-31.0); MEAN CORPUSCULAR VOLUME 84.9 fL (81.0-99.0); MEAN PLATELET VOLUME 8.8 fL (7.9-10.8); MONOCYTES # (AUTO) 0.4 10^3/uL (0.0-1.0); MONOCYTES % (AUTO) 7.8 %; NEUTROPHILS # (AUTO) 3.7 10^3/uL (1.5-6.6); PLT - PLATELET COUNT 201 10^3/uL (130-450); RED BLOOD COUNT 3.05 10^6/uL (4.20-5.40); RED CELL DISTRIBUTION WIDTH 19.1 % (12.0-15.0); WHITE BLOOD COUNT 5.1 x10^3/uL (4.8-10.8)
== END 2022-04-11 23:59 | disposition home or self-care (01) ==
LOC: LAB.R 14:20
PROVIDERS: ATTEND Internal Medicine
DX: I10 Essential (primary) hypertension (principal); D64.9 Anemia, unspecified; R00.0 Tachycardia, unspecified
CPT/HCPCS: 85025

== ENCOUNTER 2022-11-28 07:00 | Outpatient (CLI) | payer MEDICARE, BC ==
--- NOTE | 2022-11-28 16:30 | XRAY Report ---
PROCEDURE: Chest 2 View X-Ray INDICATIONS: CHF HISTORY TECHNIQUE: 2 views of the chest were acquired. COMPARISON: Chest x-ray, 02/11/2022. FINDINGS: Surgical changes and devices: None. Lungs and pleura: No pleural effusions or pneumothorax. Chronic interstitial prominence. No focal co nsolidation. Mediastinum: Mediastinal contours appear normal. Heart size is normal. Bones and chest wall: No suspicious bony lesions. Overlying soft tissues appear unremarkable. IMPRESSION: 1. Chronic interstitial prominence may be secondary to chronic interstitial lung disease or chronic C HF. Reviewed by: Roxanne Butler MD on 11/28/2022 4:28 PM PDT Approved by: Roxanne Butler MD on 11/28/2022 4:28 PM PDT Station ID: [id number]
== END 2022-11-28 23:59 | disposition home or self-care (01) ==
LOC: DI.S 07:00
PROVIDERS: ATTEND Physician Assistant Medical
DX: I50.9 Heart failure, unspecified (principal)

== ENCOUNTER 2022-11-29 11:39 | Outpatient (CLI) | payer MEDICARE, BC ==
[2022-11-29 15:31] LABS: ALBUMIN 3.7 g/dL (3.2-5.5); ALBUMIN/GLOBULIN RATIO 1.2 (1.0-2.2); BILIRUBIN,TOTAL 0.9 mg/dL (0.2-1.0); CALCIUM 8.8 mg/dL (8.5-10.3); CREATININE 1.3 mg/dL (0.4-1.0); POTASSIUM 4.7 mmol/L (3.5-5.0); TOTAL PROTEIN 6.9 g/dL (6.7-8.2)
== END 2022-11-29 11:40 | disposition home or self-care (01) ==
LOC: LAB.S 11:39
PROVIDERS: ATTEND Physician Assistant Medical
DX: R60.9 Edema, unspecified (principal); Z86.79 Personal history of other diseases of the circulatory system
CPT/HCPCS: 36415; 80053; 83880

== ENCOUNTER 2022-12-03 12:58 | Outpatient (CLI) | payer MEDICARE, BC ==
[2022-12-03 15:35] LABS: ALBUMIN 3.8 g/dL (3.2-5.5); ALBUMIN/GLOBULIN RATIO 1.2 (1.0-2.2); BILIRUBIN,TOTAL 1.1 mg/dL (0.2-1.0); CALCIUM 8.9 mg/dL (8.5-10.3); CREATININE 1.5 mg/dL (0.4-1.0); POTASSIUM 4.7 mmol/L (3.5-5.0); TOTAL PROTEIN 7.1 g/dL (6.7-8.2)
== END 2022-12-03 12:59 | disposition home or self-care (01) ==
LOC: LAB.S 12:58
PROVIDERS: ATTEND Physician Assistant Medical
DX: R60.9 Edema, unspecified (principal)
CPT/HCPCS: 36415; 80053

== ENCOUNTER 2023-01-14 15:00 | Outpatient (CLI) | payer MEDICARE, BC | END 2023-01-14 15:01 | disposition home or self-care (01) | LOC: DI 15:00 | PROVIDERS: ATTEND Internal Medicine | DX: I51.7 Cardiomegaly (principal); I27.20 Pulmonary hypertension, unspecified; I48.91 Unspecified atrial fibrillation; I87.8 Other specified disorders of veins | CPT/HCPCS: 93306 ==

== ENCOUNTER 2023-07-30 13:30 | Outpatient (CLI) | payer MEDICARE, BC ==
[2023-07-30] MEDS: ALBUTEROL 1 PUFF INH STA (14:58)
== END 2023-07-30 13:31 | disposition home or self-care (01) ==
LOC: RT 13:30
PROVIDERS: ATTEND Internal Medicine Critical Care Medicine
DX: R06.09 Other forms of dyspnea (principal)
CPT/HCPCS: 94060; 94727; 94729

== ENCOUNTER 2023-09-22 14:20 | Outpatient (CLI) | payer MEDICARE, BC ==
[2023-09-22 19:55] LABS: BASOPHILS # (AUTO) 0.1 10^3/uL (0.0-0.1); BASOPHILS % (AUTO) 0.9 %; EOSINOPHILS # (AUTO) 0.3 10^3/uL (0.0-0.7); EOSINOPHILS % (AUTO) 5.9 %; HCT - HEMATOCRIT 40.6 % (37.0-47.0); HGB - HEMOGLOBIN 12.7 g/dL (12.0-16.0); LYMPHOCYTES # (AUTO) 1.1 10^3/uL (1.5-3.5); LYMPHOCYTES % (AUTO) 20.5 %; MEAN CORPUSCULAR HEMOGLOBIN 30.6 pg (27.0-31.0); MEAN CORPUSCULAR HGB CONC 31.3 g/dL (32.0-36.0); MEAN CORPUSCULAR VOLUME 97.8 fL (81.0-99.0); MEAN PLATELET VOLUME 10.4 fL (7.9-10.8); MONOCYTES # (AUTO) 0.4 10^3/uL (0.0-1.0); MONOCYTES % (AUTO) 6.5 %; NEUTROPHILS # (AUTO) 3.5 10^3/uL (1.5-6.6); NEUTROPHILS % (AUTO) 65.3 %; PLT - PLATELET COUNT 163 10^3/uL (130-450); RED BLOOD COUNT 4.15 10^6/uL (4.20-5.40); RED CELL DISTRIBUTION WIDTH 13.4 % (12.0-15.0); WHITE BLOOD COUNT 5.4 x10^3/uL (4.8-10.8)
[2023-09-22 20:00] LABS: PT - PROTHROMBIN TIME 10.8 secs (9.9-12.6)
[2023-09-22 20:10] LABS: CALCIUM 9.8 mg/dL (8.5-10.3); CREATININE 1.6 mg/dL (0.6-1.3); POTASSIUM 4.7 mmol/L (3.5-4.5)
== END 2023-09-22 14:21 | disposition home or self-care (01) ==
LOC: LAB.S 14:20
PROVIDERS: ATTEND Specialist
DX: I48.19 Other persistent atrial fibrillation (principal)
CPT/HCPCS: 36415; 80048; 85025; 85610

== ENCOUNTER 2023-12-02 14:12 | Outpatient (CLI) | payer MEDICARE, BC ==
[2023-12-02 19:58] LABS: CALCIUM 9.7 mg/dL (8.5-10.3); CREATININE 1.7 mg/dL (0.6-1.3); POTASSIUM 5.8 mmol/L (3.5-4.5)
== END 2023-12-02 14:13 | disposition home or self-care (01) ==
LOC: LAB.S 14:12
PROVIDERS: ATTEND Internal Medicine Cardiovascular Disease
DX: I10 Essential (primary) hypertension (principal)
CPT/HCPCS: 36415; 80048

== ENCOUNTER 2023-12-05 14:19 | Outpatient (CLI) | payer MEDICARE, BC ==
[2023-12-05 20:20] LABS: CALCIUM 9.5 mg/dL (8.5-10.3); CREATININE 1.7 mg/dL (0.6-1.3); POTASSIUM 5.4 mmol/L (3.5-4.5)
== END 2023-12-05 14:20 | disposition home or self-care (01) ==
LOC: LAB.S 14:19
PROVIDERS: ATTEND Internal Medicine Cardiovascular Disease
DX: E87.5 Hyperkalemia (principal)
CPT/HCPCS: 36415; 80048

== ENCOUNTER 2023-12-12 13:01 | Outpatient (CLI) | payer MEDICARE, BC ==
[2023-12-12 15:52] LABS: CALCIUM 9.7 mg/dL (8.5-10.3); CREATININE 1.7 mg/dL (0.6-1.3); POTASSIUM 5.4 mmol/L (3.5-4.5)
[2023-12-12 21:14] LABS: ESTIMATED AVERAGE GLUCOSE 148 mg/dL (70-100); HEMOGLOBIN A1c% 6.8 % (4.27-6.07)
== END 2023-12-12 13:02 | disposition home or self-care (01) ==
LOC: LAB.S 13:01
PROVIDERS: ATTEND Internal Medicine
DX: E11.9 Type 2 diabetes mellitus without complications (principal); E87.5 Hyperkalemia
CPT/HCPCS: 36415; 80048; 83036

== ENCOUNTER 2024-02-09 09:55 | Outpatient (CLI) | payer MEDICARE, BC ==
[2024-02-09 15:31] LABS: CALCIUM 9.1 mg/dL (8.5-10.3); CREATININE 2.1 mg/dL (0.6-1.3); POTASSIUM 4.8 mmol/L (3.5-4.5)
== END 2024-02-09 09:56 | disposition home or self-care (01) ==
LOC: LAB.S 09:55
PROVIDERS: ATTEND Internal Medicine Cardiovascular Disease
DX: I50.30 Unspecified diastolic (congestive) heart failure (principal)
CPT/HCPCS: 36415; 80048

== ENCOUNTER 2024-03-12 12:23 | Outpatient (CLI) | payer MEDICARE, BC ==
[2024-03-12 13:04] LABS: CALCIUM 9.5 mg/dL (8.5-10.3); CREATININE 1.6 mg/dL (0.6-1.3); POTASSIUM 4.6 mmol/L (3.5-4.5)
== END 2024-03-12 12:24 | disposition home or self-care (01) ==
LOC: LAB 12:23
PROVIDERS: ATTEND Internal Medicine Cardiovascular Disease
DX: I50.30 Unspecified diastolic (congestive) heart failure (principal)
CPT/HCPCS: 36415; 80048